=== PATIENT | male | born 1955 | race Caucasian/White ===

== ENCOUNTER 2017-10-13 09:02 | Inpatient (IN) ==
[2017-10-13] MEDS ORDERED: Sodium Chlor 0.9% Inj 50 ML ONE (23:57)
[2017-10-14] MEDS ORDERED: Potassium Phosphate Inj 30 MMOL in Sodium Chlor 0.9% Inj 250 ML IV.SIG PRN ×2
[2017-10-14] MEDS ORDERED: Potassium Phosphate 500 MG Soluble Tablet PO PRN
[2017-10-14] MEDS ORDERED: DO NOT ADM ANY ANTICOAGULANT DRUGS OTHER PRN
[2017-10-14] MEDS ORDERED: Magnesium Sulfate Inj 2 GM in Sodium Chlor 0.9% Inj 96 ML IV.SIG PRN (00:01)
[2017-10-14] MEDS ORDERED: Dextrose 50% in Water 50 ML Vial IV.PUSH PRN (00:01)
[2017-10-14] MEDS ORDERED: Magnesium Sulfate Inj 4 GM in Sodium Chlor 0.9% Inj 92 ML IV.SIG PRN (00:01)
[2017-10-14] MEDS ORDERED: Potassium Chloride 25 MEQ Effervescent Tablet PO PRN (00:01)
[2017-10-14] MEDS ORDERED: Vancomycin Consult Pharmacy 1 EACH OTHER SCH (00:01)
[2017-10-14] MEDS ORDERED: Sodium Phosphate Inj 30 MMOL in Sodium Chlor 0.9% Inj 250 ML IV.SIG PRN (00:50)
[2017-10-14] MEDS: Dexmedetomidine Inj 200 MCG/50 ML INFUS..BTL IV.SIG PRN ×2 (01:45→03:50)
[2017-10-14] MEDS: Dexmedetomidine Inj 200 MCG/2 ML Vial ONE ×4 (01:55→03:24)
[2017-10-14] MEDS: Sodium Chlor 0.9% Inj 50 ML ONE ×2 (01:56→03:23)
[2017-10-14] MEDS: Dexmedetomidine Inj 1,000 MCG in Sodium Chlor 0.9% Inj 240 ML IV.SIG PRN ×3 (05:04→23:36)
[2017-10-14] MEDS: Insulin NovoLIN Regular Correctional Sugar Inj SQ SCH ×5 (05:37→23:53)
[2017-10-14 05:59] LABS: Hematocrit 35.4 % (39.0-51.0); Hemoglobin 12.2 gm/dL (13.0-17.0); Mean Corpuscular HGB Conc 34.5 % (32.0-36.0); Mean Corpuscular Hemoglobin 35.1 pg (27.0-34.0); Mean Corpuscular Volume 101.7 fL (80.0-100.0); Mean Platelet Volume 7.8 fL (7.0-11.0); Platelet Count 101 th/mm3 (150-450); Red Blood Count 3.48 mil/mm3 (4.50-5.90); Red Cell Distribution Width 13.1 % (11.6-17.2); White Blood Count 6.3 th/mm3 (4.0-11.0)
[2017-10-14 06:08] LABS: Activated Partial Thrombo Time 28.6 sec (24.3-30.1); INR 1.1 Ratio; Prothrombin Time 10.9 sec (9.8-11.6)
[2017-10-14 06:27] LABS: % Iron Saturation 13.4 % (20-50)
[2017-10-14 06:34] LABS: Alanine Aminotransferase 35 U/L (12-78); Albumin 2.7 g/dL (3.4-5.0); Alkaline Phosphatase 76 U/L (45-117); Anion Gap 14 meq/L (5-15); Aspartate Aminotransferase 52 U/L (15-37); Blood Urea Nitrogen 6 mg/dL (7-18); Calcium 6.3 mg/dL (8.5-10.1); Carbon Dioxide 24.4 meq/L (21.0-32.0); Chloride 97 meq/L (98-107); Creatine Kinase 274 U/L (39-308); Glomerular Filtration Rate Greater Than 89 mL/min (>89); Glucose,Random 112 mg/dL (74-106); Magnesium 1.4 mg/dL (1.5-2.5); Phosphorus 2.3 mg/dL (2.5-4.9); Sodium 135 meq/L (136-145); Total Protein 6.7 g/dL (6.4-8.2)
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
[2017-10-14] MEDS: Magnesium Oxide 400 MG Tablet PO PRN ×2 (09:51→10:01)
[2017-10-14] MEDS: Famotidine PF Inj 20 MG/2 ML Vial IV.PUSH SCH ×2 (09:52→21:06)
[2017-10-14] MEDS: Thiamine Inj 100 MG in Sodium Chlor 0.9% Inj 100 ML IV.SIG SCH ×2 (10:00→11:19)
[2017-10-14] MEDS ORDERED: Calcium Gluconate Inj 2 GM in Sodium Chlor 0.9% Inj 100 ML IV.SIG ONE (10:00)
[2017-10-14] MEDS: Vancomycin Inj 1,500 MG in Sodium Chlor 0.9% Inj 500 ML IV.SIG SCH ×2 (10:00→21:07)
[2017-10-14] MEDS: Potassium Phosphate 500 MG Soluble Tablet PO PRN (10:01)
[2017-10-14] MEDS ORDERED: Haloperidol Inj 5 MG/ML Ampul IV.PUSH PRN (16:12)
[2017-10-14 17:56] LABS: Calcium 7.4 mg/dL (8.5-10.1); Magnesium 1.6 mg/dL (1.5-2.5); Total Protein 6.8 g/dL (6.4-8.2)
[2017-10-14 18:03] LABS: Potassium 2.9 meq/L (3.5-5.1)
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
--- NOTE | 2017-10-15 03:19 | XR ---
EXAM DATE: 10/15/2017 3:16 AM EDT AGE/SEX: 62 years / Male INDICATIONS: Short of breath. CLINICAL DATA: This is the patient's subsequent encounter. Patient reports that signs and symptoms h ave been present for 4 - 6 days and indicates a pain score of 0/10. MEDICAL/SURGICAL HISTORY: Non-responsive. Non-responsive. COMPARISON: [facility] – [place] CHEST SINGLE AP, 10/13/2017. . FINDINGS: A single AP view of the chest demonstrates the lungs to be symmetrically aerated without evidence of mass, infiltrate or effusion. The cardiomediastinal contours are unremarkable. Osseous structures a re intact. test administrator projects over and partially obscures the left costophrenic angle. CONCLUSION: The lungs are clear. Electronically signed by: Seth Christian MD 10/15/2017 3:18 AM EDT
[2017-10-15 04:42] LABS: Baso % (Auto) 0.6 % (0.0-2.0); Eos % (Auto) 0.7 % (0.0-4.0); Hematocrit 35.8 % (39.0-51.0); Hemoglobin 12.4 gm/dL (13.0-17.0); Lymph # (Auto) 1.8 th/mm3 (1.0-4.8); Mean Corpuscular HGB Conc 34.5 % (32.0-36.0); Mean Corpuscular Hemoglobin 35.3 pg (27.0-34.0); Mean Corpuscular Volume 102.4 fL (80.0-100.0); Mean Platelet Volume 8.3 fL (7.0-11.0); Mono # (Auto) 0.5 th/mm3 (0.0-0.9); Mono % (Auto) 7.1 % (0.0-8.0); Neut # (Auto) 4.5 th/mm3 (1.8-7.7); Neut % (Auto) 65.6 % (16.0-70.0); Platelet Count 109 th/mm3 (150-450); Red Cell Distribution Width 12.8 % (11.6-17.2); White Blood Count 6.9 th/mm3 (4.0-11.0)
[2017-10-15 05:35] LABS: Alanine Aminotransferase 37 U/L (12-78); Albumin 2.5 g/dL (3.4-5.0); Alkaline Phosphatase 78 U/L (45-117); Anion Gap 16 meq/L (5-15); Aspartate Aminotransferase 62 U/L (15-37); Blood Urea Nitrogen 6 mg/dL (7-18); Calcium 6.9 mg/dL (8.5-10.1); Carbon Dioxide 20.8 meq/L (21.0-32.0); Chloride 98 meq/L (98-107); Glomerular Filtration Rate Greater Than 89 mL/min (>89); Glucose,Random 102 mg/dL (74-106); Magnesium 1.5 mg/dL (1.5-2.5); Phosphorus 2.2 mg/dL (2.5-4.9); Sodium 135 meq/L (136-145); Total Protein 6.4 g/dL (6.4-8.2)
[2017-10-15 05:39] LABS: Potassium 2.9 meq/L (3.5-5.1)
[2017-10-15] MEDS: Insulin NovoLIN Regular Correctional Sugar Inj SQ SCH ×3 (06:33→18:00)
[2017-10-15] MEDS ORDERED: Pharmacy Ordered Lab Info OTHER ONE (08:45)
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
[2017-10-15] MEDS ORDERED: Calcium Gluconate Inj 1 GM in Sodium Chlor 0.9% Inj 100 ML IV.SIG ONE (10:00)
[2017-10-15] MEDS: Famotidine PF Inj 20 MG/2 ML Vial IV.PUSH SCH ×2 (10:19→21:04)
[2017-10-15] MEDS: Thiamine Inj 100 MG in Sodium Chlor 0.9% Inj 100 ML IV.SIG SCH (10:19)
[2017-10-15] MEDS: Potassium Phosphate 500 MG Soluble Tablet PO PRN (11:44)
[2017-10-15] MEDS: Vancomycin Inj 1,750 MG in Sodium Chlor 0.9% Inj 500 ML IV.SIG SCH (13:37)
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
[2017-10-15 18:44] LABS: Baso % (Auto) 0.6 % (0.0-2.0); Eos % (Auto) 0.5 % (0.0-4.0); Hemoglobin 12.2 gm/dL (13.0-17.0); Lymph # (Auto) 1.7 th/mm3 (1.0-4.8); Lymph % (Auto) 22.5 % (9.0-44.0); Mean Corpuscular HGB Conc 34.9 % (32.0-36.0); Mean Corpuscular Hemoglobin 35.3 pg (27.0-34.0); Mean Platelet Volume 8.2 fL (7.0-11.0); Mono # (Auto) 0.6 th/mm3 (0.0-0.9); Mono % (Auto) 8.6 % (0.0-8.0); Neut # (Auto) 5.1 th/mm3 (1.8-7.7); Neut % (Auto) 67.8 % (16.0-70.0); Platelet Count 129 th/mm3 (150-450); Red Blood Count 3.47 mil/mm3 (4.50-5.90); Red Cell Distribution Width 12.8 % (11.6-17.2); White Blood Count 7.5 th/mm3 (4.0-11.0)
[2017-10-15 19:08] LABS: Activated Partial Thrombo Time 27.7 sec (24.3-30.1); Prothrombin Time 10.5 sec (9.8-11.6)
[2017-10-15 19:13] LABS: Alanine Aminotransferase 33 U/L (12-78); Albumin 2.4 g/dL (3.4-5.0); Alkaline Phosphatase 77 U/L (45-117); Anion Gap 17 meq/L (5-15); Aspartate Aminotransferase 58 U/L (15-37); Blood Urea Nitrogen 6 mg/dL (7-18); Calcium 7.4 mg/dL (8.5-10.1); Carbon Dioxide 18.1 meq/L (21.0-32.0); Chloride 100 meq/L (98-107); Glomerular Filtration Rate Greater Than 89 mL/min (>89); Glucose,Random 76 mg/dL (74-106); Magnesium 1.4 mg/dL (1.5-2.5); Sodium 135 meq/L (136-145); Total Protein 6.6 g/dL (6.4-8.2)
[2017-10-15 19:16] LABS: Potassium 2.8 meq/L (3.5-5.1)
[2017-10-16] MEDS: Insulin NovoLIN Regular Correctional Sugar Inj SQ SCH ×4 (00:44→18:27)
[2017-10-16] MEDS: Dexmedetomidine Inj 1,000 MCG in Sodium Chlor 0.9% Inj 240 ML IV.SIG PRN (00:47)
[2017-10-16] MEDS: Vancomycin Inj 1,750 MG in Sodium Chlor 0.9% Inj 500 ML IV.SIG SCH (00:57)
[2017-10-16 04:34] LABS: Baso # (Auto) 0.1 th/mm3 (0.0-0.2); Baso % (Auto) 0.8 % (0.0-2.0); Eos # (Auto) 0.1 th/mm3 (0.0-0.4); Eos % (Auto) 1.3 % (0.0-4.0); Hemoglobin 12.5 gm/dL (13.0-17.0); Lymph # (Auto) 1.7 th/mm3 (1.0-4.8); Lymph % (Auto) 25.3 % (9.0-44.0); Mean Corpuscular HGB Conc 34.7 % (32.0-36.0); Mean Corpuscular Hemoglobin 35.6 pg (27.0-34.0); Mean Corpuscular Volume 102.6 fL (80.0-100.0); Mean Platelet Volume 7.8 fL (7.0-11.0); Mono # (Auto) 0.7 th/mm3 (0.0-0.9); Mono % (Auto) 10.1 % (0.0-8.0); Neut # (Auto) 4.1 th/mm3 (1.8-7.7); Neut % (Auto) 62.5 % (16.0-70.0); Platelet Count 139 th/mm3 (150-450); Red Blood Count 3.51 mil/mm3 (4.50-5.90); Red Cell Distribution Width 12.9 % (11.6-17.2); White Blood Count 6.6 th/mm3 (4.0-11.0)
[2017-10-16 04:58] LABS: Alanine Aminotransferase 33 U/L (12-78); Albumin 2.5 g/dL (3.4-5.0); Alkaline Phosphatase 77 U/L (45-117); Anion Gap 16 meq/L (5-15); Aspartate Aminotransferase 49 U/L (15-37); Blood Urea Nitrogen 4 mg/dL (7-18); Calcium 7.1 mg/dL (8.5-10.1); Carbon Dioxide 19.6 meq/L (21.0-32.0); Chloride 101 meq/L (98-107); Glomerular Filtration Rate Greater Than 89 mL/min (>89); Glucose,Random 88 mg/dL (74-106); Magnesium 1.5 mg/dL (1.5-2.5); Phosphorus 2.5 mg/dL (2.5-4.9); Sodium 137 meq/L (136-145); Total Protein 6.5 g/dL (6.4-8.2)
[2017-10-16 05:24] LABS: Potassium 2.7 meq/L (3.5-5.1)
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
[2017-10-16] MEDS: Potassium Chlor 20 mEq Premix 20 MEQ/100 ML PIGGYBACK IV.SIG PRN ×2 (08:58→11:06)
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
[2017-10-16] MEDS: Famotidine PF Inj 20 MG/2 ML Vial IV.PUSH SCH ×2 (10:46→22:00)
[2017-10-16 15:16] LABS: Baso # (Auto) 0.1 th/mm3 (0.0-0.2); Baso % (Auto) 0.8 % (0.0-2.0); Eos # (Auto) 0.1 th/mm3 (0.0-0.4); Eos % (Auto) 0.7 % (0.0-4.0); Hematocrit 37.7 % (39.0-51.0); Hemoglobin 12.8 gm/dL (13.0-17.0); Lymph # (Auto) 2.2 th/mm3 (1.0-4.8); Lymph % (Auto) 28.8 % (9.0-44.0); Mean Corpuscular HGB Conc 34.1 % (32.0-36.0); Mean Corpuscular Hemoglobin 35.8 pg (27.0-34.0); Mean Corpuscular Volume 105.1 fL (80.0-100.0); Mean Platelet Volume 8.8 fL (7.0-11.0); Mono # (Auto) 0.9 th/mm3 (0.0-0.9); Mono % (Auto) 11.7 % (0.0-8.0); Neut # (Auto) 4.4 th/mm3 (1.8-7.7); Platelet Count 177 th/mm3 (150-450); Red Blood Count 3.58 mil/mm3 (4.50-5.90); Red Cell Distribution Width 13.1 % (11.6-17.2); White Blood Count 7.7 th/mm3 (4.0-11.0)
[2017-10-16 15:26] LABS: Activated Partial Thrombo Time 25.7 sec (24.3-30.1); Prothrombin Time 10.2 sec (9.8-11.6)
[2017-10-16 15:44] LABS: Alanine Aminotransferase 38 U/L (12-78); Albumin 2.7 g/dL (3.4-5.0); Anion Gap 18 meq/L (5-15); Aspartate Aminotransferase 54 U/L (15-37); Blood Urea Nitrogen 6 mg/dL (7-18); Calcium 7.6 mg/dL (8.5-10.1); Carbon Dioxide 17.2 meq/L (21.0-32.0); Chloride 102 meq/L (98-107); Glomerular Filtration Rate Greater Than 89 mL/min (>89); Glucose,Random 80 mg/dL (74-106); Magnesium 1.6 mg/dL (1.5-2.5); Phosphorus 2.1 mg/dL (2.5-4.9); Potassium 3.2 meq/L (3.5-5.1); Sodium 137 meq/L (136-145)
[2017-10-16 15:46] LABS: Alkaline Phosphatase 87 U/L (45-117); Total Protein 7.2 g/dL (6.4-8.2)
[2017-10-17] MEDS: Potassium Chlor 20 mEq Premix 20 MEQ/100 ML PIGGYBACK IV.SIG PRN (00:24)
[2017-10-17] MEDS ORDERED: Pharmacy Ordered Lab Info OTHER ONE (00:45)
[2017-10-17 05:17] LABS: Baso # (Auto) 0.1 th/mm3 (0.0-0.2); Baso % (Auto) 0.9 % (0.0-2.0); Eos % (Auto) 0.5 % (0.0-4.0); Hematocrit 36.4 % (39.0-51.0); Hemoglobin 12.2 gm/dL (13.0-17.0); Lymph # (Auto) 1.8 th/mm3 (1.0-4.8); Lymph % (Auto) 24.4 % (9.0-44.0); Mean Corpuscular HGB Conc 33.7 % (32.0-36.0); Mean Corpuscular Hemoglobin 35.3 pg (27.0-34.0); Mean Corpuscular Volume 104.8 fL (80.0-100.0); Mean Platelet Volume 7.6 fL (7.0-11.0); Mono # (Auto) 1.1 th/mm3 (0.0-0.9); Mono % (Auto) 14.7 % (0.0-8.0); Neut # (Auto) 4.3 th/mm3 (1.8-7.7); Neut % (Auto) 59.5 % (16.0-70.0); Platelet Count 205 th/mm3 (150-450); Red Blood Count 3.47 mil/mm3 (4.50-5.90); Red Cell Distribution Width 13.1 % (11.6-17.2); White Blood Count 7.3 th/mm3 (4.0-11.0)
[2017-10-17 05:35] LABS: Albumin 2.9 g/dL (3.4-5.0); Anion Gap 18 meq/L (5-15); Aspartate Aminotransferase 47 U/L (15-37); Blood Urea Nitrogen 5 mg/dL (7-18); Calcium 7.9 mg/dL (8.5-10.1); Carbon Dioxide 16.9 meq/L (21.0-32.0); Chloride 103 meq/L (98-107); Glomerular Filtration Rate Greater Than 89 mL/min (>89); Glucose,Random 62 mg/dL (74-106); Magnesium 1.8 mg/dL (1.5-2.5); Potassium 3.5 meq/L (3.5-5.1); Sodium 138 meq/L (136-145)
[2017-10-17 05:36] LABS: Alanine Aminotransferase 36 U/L (12-78); Phosphorus 1.5 mg/dL (2.5-4.9)
[2017-10-17 05:38] LABS: Alkaline Phosphatase 84 U/L (45-117); Total Protein 7.4 g/dL (6.4-8.2)
[2017-10-17] MEDS: Dexmedetomidine Inj 1,000 MCG in Sodium Chlor 0.9% Inj 240 ML IV.SIG PRN (05:51)
[2017-10-17] MEDS: Famotidine PF Inj 20 MG/2 ML Vial IV.PUSH SCH ×2 (09:35→21:09)
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
[2017-10-17] MEDS: Insulin NovoLIN Regular Correctional Sugar Inj SQ SCH ×2 (14:26→18:15)
[2017-10-17 14:59] LABS: Baso # (Auto) 0.1 th/mm3 (0.0-0.2); Baso % (Auto) 0.8 % (0.0-2.0); Eos # (Auto) 0.1 th/mm3 (0.0-0.4); Eos % (Auto) 0.7 % (0.0-4.0); Hemoglobin 12.4 gm/dL (13.0-17.0); Mean Corpuscular HGB Conc 34.3 % (32.0-36.0); Mean Corpuscular Hemoglobin 35.8 pg (27.0-34.0); Mean Corpuscular Volume 104.5 fL (80.0-100.0); Mean Platelet Volume 7.5 fL (7.0-11.0); Mono # (Auto) 1.3 th/mm3 (0.0-0.9); Mono % (Auto) 16.5 % (0.0-8.0); Neut # (Auto) 4.3 th/mm3 (1.8-7.7); Platelet Count 217 th/mm3 (150-450); Red Blood Count 3.45 mil/mm3 (4.50-5.90); Red Cell Distribution Width 12.9 % (11.6-17.2); White Blood Count 7.7 th/mm3 (4.0-11.0)
[2017-10-17 15:25] LABS: Anion Gap 19 meq/L (5-15); Blood Urea Nitrogen 3 mg/dL (7-18); Calcium 7.8 mg/dL (8.5-10.1); Carbon Dioxide 15.1 meq/L (21.0-32.0); Chloride 103 meq/L (98-107); Glomerular Filtration Rate Greater Than 89 mL/min (>89); Glucose,Random 72 mg/dL (74-106); Magnesium 1.7 mg/dL (1.5-2.5); Phosphorus 1.6 mg/dL (2.5-4.9); Potassium 3.4 meq/L (3.5-5.1); Sodium 137 meq/L (136-145)
[2017-10-17] MEDS ORDERED: Adenosine Inj 6 MG/2 ML Syringe IV.PUSH ONE ×2 (16:35→16:37)
[2017-10-17] MEDS: levoFLOXacin 750 MG Tablet PO SCH (18:14)
[2017-10-17] MEDS: dilTIAZem 30 MG Tablet PO SCH ×2 (18:47→21:08)
[2017-10-17] MEDS ORDERED: Dexmedetomidine Inj 1,000 MCG in Sodium Chlor 0.9% Inj 240 ML IV.SIG PRN (19:54)
[2017-10-17] MEDS: metroNIDAZOLE 500 MG Tablet PO SCH (21:08)
[2017-10-18] MEDS: Insulin NovoLIN Regular Correctional Sugar Inj SQ SCH ×4 (00:03→17:37)
[2017-10-18 03:47] LABS: Hematocrit 36.3 % (39.0-51.0); Hemoglobin 12.4 gm/dL (13.0-17.0); Mean Corpuscular HGB Conc 34.2 % (32.0-36.0); Mean Corpuscular Hemoglobin 35.8 pg (27.0-34.0); Mean Corpuscular Volume 104.5 fL (80.0-100.0); Platelet Count 242 th/mm3 (150-450); Red Blood Count 3.48 mil/mm3 (4.50-5.90); Red Cell Distribution Width 12.9 % (11.6-17.2); White Blood Count 7.4 th/mm3 (4.0-11.0)
[2017-10-18 04:25] LABS: Alanine Aminotransferase 33 U/L (12-78); Albumin 2.9 g/dL (3.4-5.0); Anion Gap 19 meq/L (5-15); Aspartate Aminotransferase 34 U/L (15-37); Blood Urea Nitrogen 5 mg/dL (7-18); Carbon Dioxide 14.8 meq/L (21.0-32.0); Chloride 105 meq/L (98-107); Glomerular Filtration Rate Greater Than 89 mL/min (>89); Glucose,Random 73 mg/dL (74-106); Magnesium 1.7 mg/dL (1.5-2.5); Potassium 3.4 meq/L (3.5-5.1); Sodium 139 meq/L (136-145)
[2017-10-18 04:28] LABS: Alkaline Phosphatase 84 U/L (45-117); Total Protein 7.6 g/dL (6.4-8.2)
[2017-10-18] MEDS: metroNIDAZOLE 500 MG Tablet PO SCH ×3 (05:44→23:42)
[2017-10-18] MEDS: dilTIAZem 30 MG Tablet PO SCH ×4 (08:04→20:17)
[2017-10-18] MEDS: Famotidine PF Inj 20 MG/2 ML Vial IV.PUSH SCH ×2 (08:04→20:18)
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
[2017-10-18] MEDS: Folic Acid 1 MG Tablet PO SCH (12:34)
[2017-10-18] MEDS: levoFLOXacin 750 MG Tablet PO SCH (15:13)
--- NOTE | 2017-10-18 17:53 | ECG ---
Date Performed: 10/17/2017 Time Performed: 16:58:01 PTAGE: 62 years EKG: SINUS TACHYCARDIA INFERIOR MYOCARDIAL INFARCTION , PROBABLY OLD ABNORMAL ECG PREVIOUS TRACING : 10/13/2017 09.20 Since the previous tracing, no significant change noted DOCTOR: Mildred rCespo Interpretating Date/Time 10/18/2017 17:51:09
--- NOTE | 2017-10-18 17:59 | ECHRPT ---
Indication: a fib / flutter CONCLUSIONS The transthoracic study is normal by two-dimensional, color flow imaging and Doppler interrogation. BP: / HR: Rhythm: MEASUREMENTS (Male / Female) Normal Values Technical Quality:Technically difficult study 2D ECHO LV Diastolic Diameter PLAX 4.4 cm 4.2 - 5.9 / 3.9 - 5.3 cm LV Systolic Diameter PLAX 3.0 cm IVS Diastolic Thickness 1.1 cm 0.6 - 1.0 / 0.6 - 0.9 cm LVPW Diastolic Thickness 1.0 cm 0.6 - 1.0 / 0.6 - 0.9 cm LV Relative Wall Thickness 0.5 RV Internal Dim ED PLAX 2.5 cm M-MODE Aortic Root Diameter MM 3.0 cm LA Systolic Diameter MM 4.0 cm LA Ao Ratio MM 1.3 AV Cusp Separation MM 1.7 cm FINDINGS LEFT VENTRICLE Normal left ventricular size and wall thickness. The left ventricular systolic function is normal wi th an estimated ejection fraction in the range of 60-65%. Left ventricular diastolic function parameters a re normal. RIGHT VENTRICLE The right ventricular size is normal. LEFT ATRIUM The left atrial size is normal. RIGHT ATRIUM The right atrial size is normal. ATRIAL SEPTUM Normal atrial septal thickness without atrial level shunting by limited color doppler interrogation. AORTA The aortic root and proximal ascending aorta are not well visualized. MITRAL VALVE Structurally normal mitral valve. No mitral valve stenosis or regurgitation. AORTIC VALVE Trileaflet aortic valve. No aortic valve stenosis or regurgitation. TRICUSPID VALVE Structurally normal tricuspid valve. No tricuspid valve stenosis or regurgitation. PULMONARY VALVE No pulmonary valve regurgitation or stenosis. VESSELS The inferior vena cava is normal in size. PERICARDIUM There is no pericardial effusion. Raman Quevedo MD (Electronically Signed) Final Date:18 October 2017 17:57
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
[2017-10-19] MEDS: Insulin NovoLIN Regular Correctional Sugar Inj SQ SCH ×4 (06:00→17:45)
[2017-10-19] MEDS: metroNIDAZOLE 500 MG Tablet PO SCH ×3 (06:26→22:14)
[2017-10-19 06:51] LABS: INR 1.1 Ratio; Prothrombin Time 11.2 sec (9.8-11.6)
[2017-10-19 06:58] LABS: Baso # (Auto) 0.1 th/mm3 (0.0-0.2); Baso % (Auto) 1.1 % (0.0-2.0); Eos # (Auto) 0.1 th/mm3 (0.0-0.4); Eos % (Auto) 0.9 % (0.0-4.0); Hemoglobin 13.2 gm/dL (13.0-17.0); Lymph % (Auto) 28.1 % (9.0-44.0); Mean Corpuscular HGB Conc 34.7 % (32.0-36.0); Mean Corpuscular Hemoglobin 35.9 pg (27.0-34.0); Mean Corpuscular Volume 103.7 fL (80.0-100.0); Mean Platelet Volume 7.2 fL (7.0-11.0); Mono # (Auto) 1.5 th/mm3 (0.0-0.9); Mono % (Auto) 21.6 % (0.0-8.0); Neut # (Auto) 3.4 th/mm3 (1.8-7.7); Neut % (Auto) 48.3 % (16.0-70.0); Platelet Count 299 th/mm3 (150-450); Red Blood Count 3.67 mil/mm3 (4.50-5.90); Red Cell Distribution Width 13.1 % (11.6-17.2)
[2017-10-19 07:15] LABS: Alanine Aminotransferase 29 U/L (12-78); Albumin 3.2 g/dL (3.4-5.0); Anion Gap 19 meq/L (5-15); Aspartate Aminotransferase 24 U/L (15-37); Blood Urea Nitrogen 7 mg/dL (7-18); Calcium 8.8 mg/dL (8.5-10.1); Carbon Dioxide 15.8 meq/L (21.0-32.0); Chloride 108 meq/L (98-107); Glomerular Filtration Rate Greater Than 89 mL/min (>89); Glucose,Random 91 mg/dL (74-106); Magnesium 1.7 mg/dL (1.5-2.5); Phosphorus 2.6 mg/dL (2.5-4.9); Potassium 3.1 meq/L (3.5-5.1); Sodium 143 meq/L (136-145)
[2017-10-19 07:25] LABS: Alkaline Phosphatase 84 U/L (45-117); Total Protein 7.9 g/dL (6.4-8.2)
[2017-10-19] MEDS: Folic Acid 1 MG Tablet PO SCH (08:00)
[2017-10-19] MEDS: dilTIAZem 30 MG Tablet PO SCH ×4 (08:00→20:53)
[2017-10-19] MEDS: Famotidine PF Inj 20 MG/2 ML Vial IV.PUSH SCH ×2 (08:01→20:53)
[2017-10-19] MEDS ORDERED: Sennosides Liq 8.8 MG/5 ML UDC PO ONE (09:53)
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
[2017-10-19 12:37] LABS: Hemoglobin A1c 4.6 % (4.3-6.0)
[2017-10-19] MEDS: Polyethylene Glycol 3350 17 GM Packet PO SCH (13:31)
[2017-10-19] MEDS: levoFLOXacin 750 MG Tablet PO SCH (17:44)
[2017-10-20] MEDS: metroNIDAZOLE 500 MG Tablet PO SCH (05:55)
[2017-10-20 06:08] LABS: Hematocrit 38.8 % (39.0-51.0); Hemoglobin 13.3 gm/dL (13.0-17.0); Mean Corpuscular HGB Conc 34.3 % (32.0-36.0); Mean Corpuscular Hemoglobin 34.9 pg (27.0-34.0); Mean Corpuscular Volume 101.9 fL (80.0-100.0); Platelet Count 304 th/mm3 (150-450); Red Blood Count 3.81 mil/mm3 (4.50-5.90); Red Cell Distribution Width 12.9 % (11.6-17.2); White Blood Count 5.5 th/mm3 (4.0-11.0)
[2017-10-20] MEDS: Insulin NovoLIN Regular Correctional Sugar Inj SQ SCH ×4 (06:27→18:00)
[2017-10-20 06:41] LABS: Albumin 2.9 g/dL (3.4-5.0); Anion Gap 13 meq/L (5-15); Aspartate Aminotransferase 22 U/L (15-37); Blood Urea Nitrogen 11 mg/dL (7-18); Calcium 9.2 mg/dL (8.5-10.1); Carbon Dioxide 19.7 meq/L (21.0-32.0); Chloride 112 meq/L (98-107); Glomerular Filtration Rate Greater Than 89 mL/min (>89); Glucose,Random 123 mg/dL (74-106); Sodium 145 meq/L (136-145)
[2017-10-20 06:42] LABS: Alanine Aminotransferase 24 U/L (12-78)
[2017-10-20 06:44] LABS: Alkaline Phosphatase 80 U/L (45-117); Total Protein 7.6 g/dL (6.4-8.2)
[2017-10-20] MEDS: Potassium Chlor 20 mEq Premix 20 MEQ/100 ML PIGGYBACK IV.SIG PRN ×2 (07:15→09:37)
[2017-10-20] MEDS: Famotidine PF Inj 20 MG/2 ML Vial IV.PUSH SCH ×2 (08:35→21:46)
[2017-10-20] MEDS: dilTIAZem 30 MG Tablet PO SCH ×4 (08:35→21:46)
[2017-10-20] MEDS: Folic Acid 1 MG Tablet PO SCH (08:35)
[2017-10-20] MEDS: Polyethylene Glycol 3350 17 GM Packet PO SCH (08:35)
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
[2017-10-20] MEDS: levoFLOXacin 750 MG Tablet PO SCH (14:45)
[2017-10-21] MEDS ORDERED: Acetaminophen 325 MG Tablet PO ONE (01:15)
[2017-10-21] MEDS: Insulin NovoLIN Regular Correctional Sugar Inj SQ SCH ×4 (03:50→17:10)
[2017-10-21 09:36] LABS: Baso # (Auto) 0.2 th/mm3 (0.0-0.2); Baso % (Auto) 2.9 % (0.0-2.0); Eos # (Auto) 0.1 th/mm3 (0.0-0.4); Eos % (Auto) 1.7 % (0.0-4.0); Hematocrit 36.5 % (39.0-51.0); Hemoglobin 12.6 gm/dL (13.0-17.0); Lymph # (Auto) 1.9 th/mm3 (1.0-4.8); Lymph % (Auto) 35.1 % (9.0-44.0); Mean Corpuscular HGB Conc 34.6 % (32.0-36.0); Mean Corpuscular Hemoglobin 35.7 pg (27.0-34.0); Mean Platelet Volume 7.5 fL (7.0-11.0); Mono # (Auto) 1.3 th/mm3 (0.0-0.9); Mono % (Auto) 24.2 % (0.0-8.0); Neut % (Auto) 36.1 % (16.0-70.0); Platelet Count 336 th/mm3 (150-450); Red Blood Count 3.54 mil/mm3 (4.50-5.90); Red Cell Distribution Width 13.1 % (11.6-17.2); White Blood Count 5.5 th/mm3 (4.0-11.0)
[2017-10-21 09:55] LABS: Albumin 2.7 g/dL (3.4-5.0); Anion Gap 11 meq/L (5-15); Aspartate Aminotransferase 28 U/L (15-37); Blood Urea Nitrogen 13 mg/dL (7-18); Calcium 9.2 mg/dL (8.5-10.1); Carbon Dioxide 21.1 meq/L (21.0-32.0); Chloride 113 meq/L (98-107); Glomerular Filtration Rate Greater Than 89 mL/min (>89); Glucose,Random 102 mg/dL (74-106); Potassium 3.5 meq/L (3.5-5.1); Sodium 145 meq/L (136-145)
[2017-10-21 09:56] LABS: Alanine Aminotransferase 27 U/L (12-78)
[2017-10-21 09:57] LABS: Alkaline Phosphatase 74 U/L (45-117); Total Protein 7.4 g/dL (6.4-8.2)
[2017-10-21] MEDS: Folic Acid 1 MG Tablet PO SCH (10:17)
[2017-10-21] MEDS: dilTIAZem 30 MG Tablet PO SCH ×4 (10:17→22:52)
[2017-10-21] MEDS: Famotidine PF Inj 20 MG/2 ML Vial IV.PUSH SCH ×2 (10:18→22:52)
[2017-10-21] MEDS: Polyethylene Glycol 3350 17 GM Packet PO SCH (10:23)
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
[2017-10-22] MEDS: Insulin NovoLIN Regular Correctional Sugar Inj SQ SCH ×4 (05:50→22:01)
[2017-10-22] MEDS: Famotidine PF Inj 20 MG/2 ML Vial IV.PUSH SCH ×2 (08:14→22:03)
[2017-10-22] MEDS: Polyethylene Glycol 3350 17 GM Packet PO SCH (08:15)
[2017-10-22] MEDS: Folic Acid 1 MG Tablet PO SCH (08:15)
[2017-10-22] MEDS: dilTIAZem 30 MG Tablet PO SCH ×4 (08:15→22:03)
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
[2017-10-22] MEDS ORDERED: Adenosine Inj 6 MG/2 ML Syringe IV.PUSH ONE (15:10)
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
[2017-10-23] MEDS: Insulin NovoLIN Regular Correctional Sugar Inj SQ SCH ×4 (05:08→17:18)
[2017-10-23] MEDS: Famotidine PF Inj 20 MG/2 ML Vial IV.PUSH SCH (07:59)
[2017-10-23] MEDS: Polyethylene Glycol 3350 17 GM Packet PO SCH (07:59)
[2017-10-23] MEDS: dilTIAZem 30 MG Tablet PO SCH ×4 (08:00→22:53)
[2017-10-23] MEDS: Folic Acid 1 MG Tablet PO SCH (08:00)
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
[2017-10-23] MEDS: Famotidine 20 MG Tablet PO SCH (22:52)
[2017-10-24] MEDS: Insulin NovoLIN Regular Correctional Sugar Inj SQ SCH ×4 (07:04→18:23)
[2017-10-24] MEDS: Polyethylene Glycol 3350 17 GM Packet PO SCH (08:56)
[2017-10-24] MEDS: dilTIAZem 30 MG Tablet PO SCH ×3 (09:06→22:51)
[2017-10-24] MEDS: Famotidine 20 MG Tablet PO SCH ×2 (09:07→22:51)
[2017-10-24] MEDS: Folic Acid 1 MG Tablet PO SCH (09:08)
[2017-10-24] MEDS ORDERED: Chlorhexidine Gluconate 2% 1 Pack (2 Cloths) TOPICAL SCH (10:30)
[2017-10-24] MEDS ORDERED: Metoprolol Tartrate 25 MG Tablet PO SCH (10:30)
[2017-10-24] MEDS ORDERED: Sodium Chlor 0.9% Inj 500 ML IV.SIG SCH (11:00)
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
[2017-10-25] MEDS: Insulin NovoLIN Regular Correctional Sugar Inj SQ SCH ×5 (00:28→23:48)
[2017-10-25] MEDS: dilTIAZem 30 MG Tablet PO SCH ×5 (08:27→22:17)
[2017-10-25] MEDS: Polyethylene Glycol 3350 17 GM Packet PO SCH (08:27)
[2017-10-25] MEDS: Folic Acid 1 MG Tablet PO SCH (08:28)
[2017-10-25] MEDS: Famotidine 20 MG Tablet PO SCH ×2 (08:28→22:20)
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
[2017-10-26] MEDS: Insulin NovoLIN Regular Correctional Sugar Inj SQ SCH (06:28)
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
[2017-10-26] MEDS: Polyethylene Glycol 3350 17 GM Packet PO SCH (13:11)
[2017-10-26] MEDS: dilTIAZem 30 MG Tablet PO SCH ×4 (13:11→21:46)
[2017-10-26] MEDS: Folic Acid 1 MG Tablet PO SCH (13:11)
[2017-10-26] MEDS: Famotidine 20 MG Tablet PO SCH ×2 (13:11→21:46)
[2017-10-26] MEDS ORDERED: Morphine Sulfate Inj 2 MG/ML Vial IV.PUSH ONE (16:37)
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
[2017-10-26] MEDS ORDERED: Morphine Inj 4 MG/ML Vial IV.PUSH ONE (18:00)
[2017-10-27] MEDS: dilTIAZem 30 MG Tablet PO SCH ×4 (09:43→22:12)
[2017-10-27] MEDS: Folic Acid 1 MG Tablet PO SCH (09:43)
[2017-10-27] MEDS: Famotidine 20 MG Tablet PO SCH ×2 (09:43→22:12)
[2017-10-27] MEDS: Polyethylene Glycol 3350 17 GM Packet PO SCH (09:44)
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
[2017-10-28] MEDS: Folic Acid 1 MG Tablet PO SCH (08:55)
[2017-10-28] MEDS: dilTIAZem 30 MG Tablet PO SCH ×4 (08:56→22:11)
[2017-10-28] MEDS: Famotidine 20 MG Tablet PO SCH ×2 (08:56→22:11)
[2017-10-28] MEDS: Polyethylene Glycol 3350 17 GM Packet PO SCH (08:56)
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
[2017-10-29] MEDS: Folic Acid 1 MG Tablet PO SCH (10:43)
[2017-10-29] MEDS: Famotidine 20 MG Tablet PO SCH ×2 (10:43→20:54)
[2017-10-29] MEDS: dilTIAZem 30 MG Tablet PO SCH ×4 (10:43→20:54)
[2017-10-29 10:44] LABS: Baso # (Auto) 0.2 th/mm3 (0.0-0.2); Baso % (Auto) 2.3 % (0.0-2.0); Eos # (Auto) 0.1 th/mm3 (0.0-0.4); Eos % (Auto) 1.6 % (0.0-4.0); Lymph # (Auto) 3.1 th/mm3 (1.0-4.8); Lymph % (Auto) 40.8 % (9.0-44.0); Mean Corpuscular HGB Conc 34.3 % (32.0-36.0); Mean Platelet Volume 7.7 fL (7.0-11.0); Neut # (Auto) 3.2 th/mm3 (1.8-7.7); Neut % (Auto) 42.3 % (16.0-70.0); Platelet Count 382 th/mm3 (150-450); Red Blood Count 3.72 mil/mm3 (4.50-5.90); Red Cell Distribution Width 12.6 % (11.6-17.2); White Blood Count 7.5 th/mm3 (4.0-11.0)
[2017-10-29] MEDS: Polyethylene Glycol 3350 17 GM Packet PO SCH (10:44)
[2017-10-29 10:49] LABS: Prothrombin Time 10.5 sec (9.8-11.6)
[2017-10-29 11:12] LABS: Albumin 3.4 g/dL (3.4-5.0); Anion Gap 9 meq/L (5-15); Aspartate Aminotransferase 21 U/L (15-37); Blood Urea Nitrogen 8 mg/dL (7-18); Calcium 9.1 mg/dL (8.5-10.1); Carbon Dioxide 24.6 meq/L (21.0-32.0); Chloride 106 meq/L (98-107); Glomerular Filtration Rate Greater Than 89 mL/min (>89); Glucose,Random 84 mg/dL (74-106); Potassium 3.4 meq/L (3.5-5.1); Sodium 140 meq/L (136-145)
[2017-10-29 11:17] LABS: Alanine Aminotransferase 27 U/L (12-78); Alkaline Phosphatase 71 U/L (45-117)
[2017-10-29] MEDS ORDERED: Lidocaine PF 1% Inj 5 ML Syringe INFILTRATN ONE (12:00)
[2017-10-29] MEDS ORDERED: Glycopyrrolate Inj 1 MG/5 ML Syringe IV.PUSH ONE (12:00)
[2017-10-29] MEDS ORDERED: Phenylephrine/NS 1000 MCG/10ML Syringe IV.PUSH ONE (12:00)
[2017-10-29] MEDS ORDERED: Lidocaine 1%/Epinephrine 1:100,000 Inj 20 ML Vial ONE (16:03)
[2017-10-29] MEDS ORDERED: Lidocaine 1%/Epinephrine 1:100,000 Inj 30 ML Vial ONE (16:24)
[2017-10-29] MEDS ORDERED: *Meperidine Inj 25 MG/ML Vial PERIprocedural Use ONLY ONE (16:50)
[2017-10-29] MEDS ORDERED: fentaNYL Citrate Inj 100 MCG/2 ML Ampul ONE (16:57)
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
[2017-10-30] MEDS: dilTIAZem 30 MG Tablet PO SCH ×4 (10:11→21:38)
[2017-10-30] MEDS: Famotidine 20 MG Tablet PO SCH ×2 (10:11→21:38)
[2017-10-30] MEDS: Folic Acid 1 MG Tablet PO SCH (10:12)
[2017-10-30] MEDS: Polyethylene Glycol 3350 17 GM Packet PO SCH (10:13)
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
[2017-10-31] MEDS: Folic Acid 1 MG Tablet PO SCH (09:10)
[2017-10-31] MEDS: Famotidine 20 MG Tablet PO SCH ×2 (09:10→21:06)
[2017-10-31] MEDS: dilTIAZem 30 MG Tablet PO SCH ×4 (09:10→21:06)
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
[2017-10-31] MEDS: Polyethylene Glycol 3350 17 GM Packet PO SCH (12:12)
[2017-11-01] MEDS: Folic Acid 1 MG Tablet PO SCH (09:53)
[2017-11-01] MEDS: dilTIAZem 30 MG Tablet PO SCH ×4 (09:53→21:27)
[2017-11-01] MEDS: Famotidine 20 MG Tablet PO SCH ×2 (09:53→21:27)
[2017-11-01] MEDS: Polyethylene Glycol 3350 17 GM Packet PO SCH (09:53)
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
[2017-11-01] MEDS: Morphine Inj 4 MG/ML Vial IV.PUSH PRN (21:28)
[2017-11-02] MEDS: dilTIAZem 30 MG Tablet PO SCH ×4 (09:45→21:51)
[2017-11-02] MEDS: Folic Acid 1 MG Tablet PO SCH (09:45)
[2017-11-02] MEDS: Famotidine 20 MG Tablet PO SCH ×2 (09:45→21:51)
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
[2017-11-02] MEDS: Polyethylene Glycol 3350 17 GM Packet PO SCH (13:30)
[2017-11-02] MEDS: Morphine Inj 4 MG/ML Vial IV.PUSH PRN (14:54)
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
[2017-11-03] MEDS: Folic Acid 1 MG Tablet PO SCH (09:51)
[2017-11-03] MEDS: Famotidine 20 MG Tablet PO SCH ×2 (09:51→20:51)
[2017-11-03] MEDS: dilTIAZem 30 MG Tablet PO SCH ×4 (09:51→20:51)
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
[2017-11-03] MEDS: Polyethylene Glycol 3350 17 GM Packet PO SCH (09:55)
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
[2017-11-04] MEDS: Famotidine 20 MG Tablet PO SCH ×2 (09:14→21:10)
[2017-11-04] MEDS: Polyethylene Glycol 3350 17 GM Packet PO SCH (09:14)
[2017-11-04] MEDS: Folic Acid 1 MG Tablet PO SCH (09:14)
[2017-11-04] MEDS: dilTIAZem CD 120 MG Capsule PO SCH (09:16)
[2017-11-04] MEDS: Morphine Inj 4 MG/ML Vial IV.PUSH PRN (15:25)
[2017-11-05] MEDS: dilTIAZem CD 120 MG Capsule PO SCH (08:51)
[2017-11-05] MEDS: Folic Acid 1 MG Tablet PO SCH (08:51)
[2017-11-05] MEDS: Polyethylene Glycol 3350 17 GM Packet PO SCH (08:52)
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
[2017-11-05] MEDS: Famotidine 20 MG Tablet PO SCH ×2 (13:37→21:41)
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
[2017-11-06] MEDS: Famotidine 20 MG Tablet PO SCH ×2 (09:24→22:12)
[2017-11-06] MEDS: Folic Acid 1 MG Tablet PO SCH (09:24)
[2017-11-06] MEDS: dilTIAZem CD 120 MG Capsule PO SCH (09:24)
[2017-11-06] MEDS: Polyethylene Glycol 3350 17 GM Packet PO SCH (09:24)
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
[2017-11-07] MEDS: Polyethylene Glycol 3350 17 GM Packet PO SCH (10:05)
[2017-11-07] MEDS: Folic Acid 1 MG Tablet PO SCH (10:05)
[2017-11-07] MEDS: dilTIAZem CD 120 MG Capsule PO SCH (10:05)
[2017-11-07] MEDS: Famotidine 20 MG Tablet PO SCH ×2 (10:05→21:02)
[2017-11-07] MEDS: Morphine Inj 4 MG/ML Vial IV.PUSH PRN (21:02)
[2017-11-08] MEDS: Famotidine 20 MG Tablet PO SCH ×2 (09:29→21:36)
[2017-11-08] MEDS: dilTIAZem CD 120 MG Capsule PO SCH (09:30)
[2017-11-08] MEDS: Folic Acid 1 MG Tablet PO SCH (09:30)
[2017-11-08] MEDS: Polyethylene Glycol 3350 17 GM Packet PO SCH (09:31)
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
[2017-11-09] MEDS: Famotidine 20 MG Tablet PO SCH (09:28)
[2017-11-09] MEDS: Polyethylene Glycol 3350 17 GM Packet PO SCH (09:28)
[2017-11-09] MEDS: dilTIAZem CD 120 MG Capsule PO SCH (09:28)
[2017-11-09] MEDS: Folic Acid 1 MG Tablet PO SCH (09:28)
[2017-11-09 09:41] VITALS: BP 118/66; RESP 18; TEMP 97.8; O2SAT 98
[2017-11-09 20:26] VITALS: PULSE 95
== END 2017-11-09 12:58 ==
LOC: NEDA 14:08 → HIMC 14:27 → N04 10-20 16:38
PROVIDERS: ADMIT Internal Medicine; ATTEND Internal Medicine

== ENCOUNTER 2017-12-24 17:56 | Inpatient (IN) ==
[2017-12-24 21:03] LABS: Baso # (Auto) 0.1 th/mm3 (0.0-0.2); Baso % (Auto) 0.9 % (0.0-2.0); Eos # (Auto) 0.1 th/mm3 (0.0-0.4); Eos % (Auto) 1.6 % (0.0-4.0); Hematocrit 43.8 % (39.0-51.0); Hemoglobin 15.1 gm/dL (13.0-17.0); Lymph # (Auto) 4.1 th/mm3 (1.0-4.8); Lymph % (Auto) 61.6 % (9.0-44.0); Mean Corpuscular HGB Conc 34.4 % (32.0-36.0); Mean Corpuscular Hemoglobin 34.3 pg (27.0-34.0); Mean Corpuscular Volume 99.9 fL (80.0-100.0); Mean Platelet Volume 7.9 fL (7.0-11.0); Mono # (Auto) 0.5 th/mm3 (0.0-0.9); Mono % (Auto) 6.8 % (0.0-8.0); Neut # (Auto) 1.9 th/mm3 (1.8-7.7); Neut % (Auto) 29.1 % (16.0-70.0); Platelet Count 105 th/mm3 (150-450); Red Blood Count 4.39 mil/mm3 (4.50-5.90); Red Cell Distribution Width 13.9 % (11.6-17.2); White Blood Count 6.7 th/mm3 (4.0-11.0)
[2017-12-24 21:09] LABS: Bilirubin,Urine Negative (Negative); Clarity,Urine Hazy (Clear); Color,Urine Yellow (Yellw/Straw); Glucose,Urine (UA) Negative (Negative); Hyaline Casts,Urine 10 /lpf (0-3); Leukocyte Esterase,Urine Negative (Negative); Mucus,Urine Few /lpf (Occasional); Nitrite,Urine Negative (Negative); Specific Gravity,Urine 1.011 (1.002-1.035); Squamous Epithelial Cell,Urine <1 /hpf (0-5); Urobilinogen,Urine 4 or Greater mg/dL (Less than 2)
[2017-12-24] MEDS ORDERED: Folic Acid 1 MG Tablet PO ONE (21:11)
[2017-12-24] MEDS ORDERED: Thiamine Inj 100 MG in Sodium Chlor 0.9% Inj 100 ML IV.SIG ONE (21:11)
[2017-12-24] MEDS ORDERED: Sod Chloride 0.9% Inj 1,000 ML IV.SIG SCH (21:15)
[2017-12-24 21:26] LABS: Albumin 4.1 g/dL (3.4-5.0); Anion Gap 9 meq/L (5-15); Aspartate Aminotransferase 93 U/L (15-37); Blood Urea Nitrogen 3 mg/dL (7-18); Calcium 8.4 mg/dL (8.5-10.1); Carbon Dioxide 26.3 meq/L (21.0-32.0); Chloride 102 meq/L (98-107); Glomerular Filtration Rate Greater Than 89 mL/min (>89); Glucose,Random 87 mg/dL (74-106); Lipase 1290 U/L (73-393); Potassium 3.9 meq/L (3.5-5.1); Sodium 137 meq/L (136-145)
[2017-12-24 21:27] LABS: Alanine Aminotransferase 54 U/L (12-78)
[2017-12-24 21:29] LABS: Alkaline Phosphatase 70 U/L (45-117); Total Protein 9.2 g/dL (6.4-8.2)
--- NOTE | 2017-12-24 21:29 | ED ---
HPI General Chief Complaint: Abdominal Pain Stated Complaint: Abd Pain Time Seen by Provider: 12/24/17 20:46 Source: patient Mode of arrival: ambulatory Limitations: no limitations History of Present Illness HPI narrative: Patient is a 62-year-old male presenting to emerge from for evaluation of right lower quadrant abdominal pain. Patient states it started a week ago, pain is intermittent in nature. He states it does not bother him most of the time but it started bothering him this morning. He states the pain is aching in nature, a 4 out of 10. There are no alleviating or exacerbating factors. Patient denies any nausea, vomiting, fever, chills, chest pain, shortness of breath. Patient states that he has been drinking alcohol today, he states he only had a 4 pack of beer. He does drink on a daily basis. Patient denies any other complaints at this time. MD complaint: abdominal pain Onset (ago): week(s) (1) Pain Consistency: intermittent Location: RLQ Severity: mild Severity scale (1-10): 4 Quality: aching Radiation: none Migration to: no migration Relieving factors: nothing Exacerbating factors: nothing Associated symptoms: denies other symptoms Related Data Previous Rx's Medication Instructions Recorded clonidine HCl [Catapres] 0.1 mg PO Q8HR tab 11/05/17 diltiazem HCl 120 mg PO DAILY cap 11/05/17 famotidine 20 mg PO BID tab 11/05/17 folic acid 1 mg PO DAILY tab 11/05/17 multivitamin with folic acid 1 tab PO DAILY tab 11/05/17 [Thera] thiamine HCl (vitamin B1) 100 mg PO DAILY tab 11/05/17 hydrocodone-acetaminophen [Luray] 1 tab PO Q8H PRN #6 tab 11/09/17 Allergies Allergy/AdvReac Type Severity Reaction Status Date / Time *MDRO Multi-Drug Resistant AdvReac Unknown Uncoded 10/27/14 16:06 Organism Review of Systems ROS: all other systems reviewed are negative [facility] Medical History Medical History Hepatitis B (Acute) Hypertension (Acute) Surgical History Surgical History History of facial surgery (Acute) History of back surgery (Acute) Social History Social History Smoking Status: Current every day smoker Tobacco Type: Cigarettes How Often Do You Have a Drink Containing Alcohol: 4 or more times a week Recent Travel in [facility] within the Last 8 Weeks: No Recent Out of Country Travel within the Last 8 Weeks: No Immunization History Tetanus Immunization: Unsure Hx Influenza Vaccine This Season: No Exam Narrative Exam Narrative: GENERAL: Well-developed, well-nourished, alert male. Appears restless, no acute distress. SKIN: Focused skin assessment warm/dry. Healing burn to the right lower quadrant. No induration, exudate noted. HEAD: Atraumatic. Normocephalic. EYES: Pupils equal and round. No scleral icterus. No injection or drainage. ENT: No nasal bleeding or discharge. Mucous membranes pink and moist. NECK: Trachea midline. No JVD. CARDIOVASCULAR: Regular rate and rhythm. No murmur appreciated. RESPIRATORY: No accessory muscle use. Clear to auscultation. Breath sounds equal bilaterally. GASTROINTESTINAL: Abdomen soft, mildly tender to palpation in right lower quadrant, nondistended. Hepatic and splenic margins not palpable. Positive bowel sounds, no rebound, no guarding. MUSCULOSKELETAL: No obvious deformities. No clubbing. No cyanosis. No edema. NEUROLOGICAL: Awake and alert. No obvious cranial nerve deficits. Motor grossly within normal limits. Normal speech. PSYCHIATRIC: Appropriate mood and affect; insight and judgment normal. Course Consultations Consultation #1: The patient's case including history, pertinent physical examination findings, and laboratory studies were discussed with Dr. Obrien. It was agreed that the patient would be admitted to the hospitalist service. Time: 01:14 Initial Documented Vital Signs Temperature 98.0 F 12/24/17 18:05 Pulse Rate 101 H 12/24/17 18:05 Respiratory Rate 14 12/24/17 18:05 Blood Pressure 124/94 H 12/24/17 18:05 Pulse Oximetry 97 12/24/17 18:05 Last Documented Vital Signs Temperature 98.0 F 12/24/17 18:05 Pulse Rate 101 H 12/24/17 18:05 Respiratory Rate 14 12/24/17 18:05 Blood Pressure 124/94 H 12/24/17 18:05 Pulse Oximetry 97 12/24/17 18:05 Sign Out Sign Out Data: Patient Sign Out occurred on 12/24/17 at 23:00. Patient's care was discussed, and care was transferred from Karen Lin to Velia Quevedo MD. Sign Out Comment: Pt presented with RLQ abdominal pain. Intermittent. Labs unremarkable other than a blood alcohol level of 319. Pt was given IVF, ativan. He was slightly tremulous on arrival. CT scan of the abdomen is pending Last updated by Karen Lin ARNP at 12/24/17 22:40 Post-Handoff Eval: The patient's case was checked out to me by Karen. Please see her initial history and physical. The patient arrived with abdominal pain and symptoms of tremulousness. The patient reports a history of daily alcohol intake. Medical Decision Making RAJEEV Attestation RAJEEV supervised visit: Yes Attestation: I, Dr. Quevedo, have reviewed the advance practice practitioner's documentation and am in agreement, met with the patient face to face, made the diagnosis, and the medical decision making was done by me. The patient was initially evaluated by Karen, the ART OBJECTS SUPERVISOR. Please see their complete history and physical. *My assessment and Findings: The patient presents with history of abdominal pain in the right lower quadrant During the course of the patient's emergency department visit, the patient's history, examination, and differential diagnosis were reviewed with the patient. The patient was placed on a potline monitor with oximetry and frequent blood pressure monitoring. The patient had IV access obtained and blood work sent for analysis. The patient was initially provided normal saline IV fluids, Ativan 0.5 mg IV 1 for alcohol related withdrawal symptoms. The patient's studies were reviewed and remarkable for a chemistry that was remarkable for a calcium of 8.4, AST 93, total protein 9.2, lipase 1290. CBC shows a white count of 6.7, hemoglobin 15.1, platelets 105 with 61.6 lymphocytes. Urinalysis shows hazy urine trace ketones, otherwise unremarkable. Alcohol level is 319. CT scan of the abdomen and pelvis reveals no acute findings, diffuse fatty liver, no calcified gallstones or ductal dilatation. The patient's results were discussed with the patient, including the plan of care. I explained that further testing and/ or monitoring is indicated based on the patient's history, examination, and/ or laboratory findings. Therefore, I recommended admission for additional evaluation. The patient expressed understanding and was agreeable with this plan. The patient was admitted to the hospital in stable condition and sent to a bed under the care of the [facility] service. MDM Narrative Medical decision making narrative: Patient is a 62-year-old male presenting for evaluation of right lower quadrant abdominal pain. Labs imaging ordered and pending. Patient appears restless, Ativan was ordered, will assess an alcohol level. Labs reviewed, no acute findings. Blood alcohol 319. Pt is resting comfortably. CT scan pending. Medical Screen Exam Complete: Yes Emergency Medical Condition: Yes Differential Diagnosis Differential Diagnosis: Musculoskeletal pain versus appendicitis versus diverticulitis versus metabolic abnormality versus other Medical Records Medical records reviewed: Yes I reviewed the patient's medical records. Lab Data Lab results reviewed: Yes I reviewed the patient's lab results. Result diagrams: 12/24/17 19:36 12/24/17 19:36 Lab Results 12/24/17 12/24/17 12/24/17 Range/Units 19:36 19:36 19:36 WBC 6.7 (4.0-11.0) th/mm3 RBC 4.39 L (4.50-5.90) mil/mm3 Hgb 15.1 (13.0-17.0) gm/dL Hct 43.8 (39.0-51.0) % MCV 99.9 (80.0-100.0) fL MCH 34.3 H (27.0-34.0) pg MCHC 34.4 (32.0-36.0) % RDW 13.9 (11.6-17.2) % Plt Count 105 L (150-450) th/mm3 MPV 7.9 (7.0-11.0) fL Prelim Diff (Auto) Slide review pending Neut % (Auto) 29.1 (16.0-70.0) % Lymph % (Auto) 61.6 H (9.0-44.0) % [place] % (Auto) 6.8 (0.0-8.0) % Eos % (Auto) 1.6 (0.0-4.0) % Baso % (Auto) 0.9 (0.0-2.0) % Neut # (Auto) 1.9 (1.8-7.7) th/mm3 Lymph # (Auto) 4.1 (1.0-4.8) th/mm3 [place] # (Auto) 0.5 (0.0-0.9) th/mm3 Eos # (Auto) 0.1 (0.0-0.4) th/mm3 Baso # (Auto) 0.1 (0.0-0.2) th/mm3 WBC Differential . Diff Scan Auto diff confirmed Differential Comment . Sodium 137 (136-145) meq/L Potassium 3.9 (3.5-5.1) meq/L Chloride 102 (98-107) meq/L Carbon Dioxide 26.3 (21.0-32.0) meq/L Anion Gap 9 (5-15) meq/L BUN 3 L (7-18) mg/dL Creatinine 0.74 (0.60-1.30) mg/dL Estimated GFR Greater than 89 (>89) mL/min Random Glucose 87 (74-106) mg/dL Calcium 8.4 L (8.5-10.1) mg/dL Total Bilirubin 0.4 (0.2-1.0) mg/dL AST 93 H (15-37) U/L ALT 54 (12-78) U/L Alkaline Phosphatase 70 (45-117) U/L Total Protein 9.2 H (6.4-8.2) g/dL Albumin 4.1 (3.4-5.0) g/dL Lipase 1290 H (73-393) U/L Urine Color Yellow (Yellw/Straw) Urine Clarity Hazy H (Clear) Urine pH 5.0 (5.0-8.5) Ur Specific [place] 1.011 (1.002-1.035) Urine Protein Negative (Neg-Trace) mg/dL Urine Glucose (UA) Negative (Negative) mg/dL Urine Ketones Trace H (Negative) mg/dL Urine Occult Blood Negative (Negative) Urine Nitrate Negative (Negative) Urine Bilirubin Negative (Negative) Urine Urobilinogen 4 or greater (Less than 2) mg/dL Ur Leukocyte Esterase Negative (Negative) Urine RBC Less than 1 (0-3) /hpf Urine WBC 1 (0-5) /hpf Ur Squamous Epith Cells <1 (0-5) /hpf Hyaline Casts 10 (0-3) /lpf Urine Mucus Few H (Occasional) /lpf Micro UA Comment Culture not ind Ur Microscopic Review Not Reportable Urine Culture Comments Culture not ind Serum Alcohol (0-5) mg/dL 12/24/17 Range/Units 19:36 WBC (4.0-11.0) th/mm3 RBC (4.50-5.90) mil/mm3 Hgb (13.0-17.0) gm/dL Hct (39.0-51.0) % MCV (80.0-100.0) fL MCH (27.0-34.0) pg MCHC (32.0-36.0) % RDW (11.6-17.2) % Plt Count (150-450) th/mm3 MPV (7.0-11.0) fL Prelim Diff (Auto) Neut % (Auto) (16.0-70.0) % Lymph % (Auto) (9.0-44.0) % [place] % (Auto) (0.0-8.0) % Eos % (Auto) (0.0-4.0) % Baso % (Auto) (0.0-2.0) % Neut # (Auto) (1.8-7.7) th/mm3 Lymph # (Auto) (1.0-4.8) th/mm3 [place] # (Auto) (0.0-0.9) th/mm3 Eos # (Auto) (0.0-0.4) th/mm3 Baso # (Auto) (0.0-0.2) th/mm3 WBC Differential Diff Scan Differential Comment Sodium (136-145) meq/L Potassium (3.5-5.1) meq/L Chloride (98-107) meq/L Carbon Dioxide (21.0-32.0) meq/L Anion Gap (5-15) meq/L BUN (7-18) mg/dL Creatinine (0.60-1.30) mg/dL Estimated GFR (>89) mL/min Random Glucose (74-106) mg/dL Calcium (8.5-10.1) mg/dL Total Bilirubin (0.2-1.0) mg/dL AST (15-37) U/L ALT (12-78) U/L Alkaline Phosphatase (45-117) U/L Total Protein (6.4-8.2) g/dL Albumin (3.4-5.0) g/dL Lipase (73-393) U/L Urine Color (Yellw/Straw) Urine Clarity (Clear) Urine pH (5.0-8.5) Ur Specific [place] (1.002-1.035) Urine Protein (Neg-Trace) mg/dL Urine Glucose (UA) (Negative) mg/dL Urine Ketones (Negative) mg/dL Urine Occult Blood (Negative) Urine Nitrate (Negative) Urine Bilirubin (Negative) Urine Urobilinogen (Less than 2) mg/dL Ur Leukocyte Esterase (Negative) Urine RBC (0-3) /hpf Urine WBC (0-5) /hpf Ur Squamous Epith Cells (0-5) /hpf Hyaline Casts (0-3) /lpf Urine Mucus (Occasional) /lpf Micro UA Comment Ur Microscopic Review Urine Culture Comments Serum Alcohol 319 H (0-5) mg/dL Imaging Data Radiologist's impression: Abdomen/Pelvis CT 12/25/17 00:00 CONCLUSION: 1. No acute findings. Diffuse fatty liver. No calcified gallstones or ductal dilatation. Discharge Plan Discharge Disposition Patient Disposition: 30 Still Patient Discharge Details Diagnosis: Acute alcoholic pancreatitis Physicians Team ED Provider: Velia Quevedo Rxs /Orders / Referrals /Forms Prescriptions: No Action clonidine HCl [Catapres] 0.1 mg Tablet 0.1 mg PO Q8HR RF: 0 thiamine HCl (vitamin B1) 100 mg Tablet 100 mg PO DAILY RF: 0 famotidine 20 mg Tablet 20 mg PO BID RF: 0 diltiazem HCl 120 mg Capsule,Extended Release 24hr 120 mg PO DAILY RF: 0 folic acid 1 mg Tablet 1 mg PO DAILY RF: 0 multivitamin with folic acid [Thera] 400 mcg Tablet 1 tab PO DAILY RF: 0 hydrocodone-acetaminophen [Luray] 5-325 mg Tablet 1 tab PO Q8H PRN (Reason: acute pain) Qty: 6 RF: 0 Status ED Status: With Doctor
--- NOTE | 2017-12-25 00:51 | CT ---
EXAM DATE: 12/25/2017 12:45 AM EDT AGE/SEX: 62 years / Male INDICATIONS: Right upper quadrant pain. CLINICAL DATA: This is the patient's initial encounter. Patient reports that signs and symptoms have been present for 1 day and indicates a pain score of 7/10. MEDICAL/SURGICAL HISTORY: Hypertension. Hepatitis C. None. ORAL CONTRAST: No oral contrast ingested. RADIATION DOSE: 7.11 CTDI (mGy) [place] [facility] [place]/13/2017. . TECHNIQUE: Multiple contiguous axial images were obtained through the abdomen and pelvis following b olus infusion of 95 ml Omnipaque 350 (iohexol) nonionic water-soluble contrast as a single exam dos e. No oral contrast ingested. Using automated exposure control and adjustment of the mA and/or kV ac cording to patient size, radiation dose was kept as low as reasonably achievable to obtain optimal di agnostic quality images. DICOM format image data is available electronically for review and comparis on. FINDINGS: Lung bases are clear. Diffuse fatty liver. No acute findings in the spleen, adrenals, kidneys or panc reas. No calcified gallstones or biliary ductal dilatation. No free fluid. No bowel obstruction. No adenopathy. CONCLUSION: 1. No acute findings. Diffuse fatty liver. No calcified gallstones or ductal dilatation. Electronically signed by: Michael Villagomez MD 12/25/2017 12:50 AM EDT
[2017-12-25] MEDS ORDERED: LORazepam 1 MG Tablet PO PRN (02:38)
[2017-12-25] MEDS ORDERED: Haloperidol Inj 5 MG/ML Ampul IV.PUSH PRN (02:38)
[2017-12-25] MEDS ORDERED: Morphine Sulfate Inj 2 MG/ML Vial IV.PUSH PRN (03:22)
--- NOTE | 2017-12-25 03:24 | P.HPIM ---
History of Present Illness Service: [facility] Primary Care Physician: No Primary Care Physician Chief Complaint: abdominal pain History of Present Illness: 62 y/o male with a history of etoh abuse, and HTN presented to the ED with complaints of abdominal pain. Patient states he had abdominal pain today after drinking 2 beers. It was a 10/10, intermittent, sharp, pain to RUQ with no radiation and associated nausea. He denies any fever or chills, no chest pain or sob noted. Inpatient Certification: I certify that the inpatient services were ordered in accordance with Medicare regulations governing the order. This includes certification that hospital inpatient services are reasonable and necessary and in the case of services not specified as inpatient-only under 42 CFR 419.22(n), that they are appropriately provided as inpatient services in accordance to with the 2-midnight benchmark under 43 CFR 412.3(e) Estimated Total Length of Stay (Days): 2 Plans for Post Hospital Care: Home Review of Systems All other systems reviewed negative except as stated in HPI [facility] - History History Provided By: Patient, Environmental Systems Coordinator / EMT - Medical History Medical History: Medical History (Last Reviewed 12/25/17 @ 03:18 by OSCAR William) Hepatitis B (Acute) Hypertension (Acute) - Surgical History Surgical History: Surgical History (Last Reviewed 12/25/17 @ 03:18 by OSCAR Willaim) History of facial surgery (Acute) History of back surgery (Acute) H/O skin graft - Family History Family History: Family History (Last Reviewed 12/25/17 @ 03:18 by OSCAR William) Other Family history unknown - Tobacco History Tobacco Use In Past 30 Days: Yes Smoking Status: Current every day smoker Tobacco Type: Cigarettes - Alcohol History How Often Do You Have a Drink Containing Alcohol: 4 or more times a week - Travel History Recent Travel in the [place] Within the Last 8 Weeks: No Recent Travel Out of the Country Within the Last 8 Weeks: No - Immunization History Tetanus Immunization: Unsure Hx Influenza Vaccine This Season: No Medications and Allergies Active Medications: Active Medications Clonidine HCl (Catapres) 0.1 mg PO Q8HR NICK Diltiazem HCl (Cardizem Cd 24hr) 120 mg PO DAILY NICK Famotidine (Pepcid) 20 mg PO BID NICK Flumazenil (Romazecon Inj) 0.2 mg IV.PUSH Q1M PRN PRN Reason: OVERSEDATION Haloperidol Lactate (Haldol Inj) 1 mg IV.PUSH Q15M PRN PRN Reason: for severe agitation Heparin Sodium (Porcine) (Heparin Inj) 5,000 units SQ Q12H NICK Sodium Chloride (Ns Inj) 1,000 mls @ 0 mls/hr IV.SIG BOLUS NICK Last Infusion: 12/24/17 23:08 Dose: Infused Sodium Chloride (Ns Inj) 1,000 mls @ 150 mls/hr IV.CONT .Q6H40M NICK Multivitamins 10 ml/ Folic (Acid 1 mg/ Sodium Chloride) 510.2 mls @ 125 mls/hr IV.SIG DAILY NICK Stop: 12/30/17 08:59 Lorazepam (Ativan) 1 mg PO Q4H PRN PRN Reason: for CIWA 8-10 Lorazepam (Ativan) 2 mg PO Q2H PRN PRN Reason: for CIWA 11-14 Lorazepam (Ativan Inj) 2 mg IV.PUSH Q2H PRN PRN Reason: for CIWA 11-14 Lorazepam (Ativan Inj) 2 mg IV.PUSH Q1H PRN PRN Reason: for CIWA 15-20 Lorazepam (Ativan Inj) 1 mg IV.PUSH Q4H PRN PRN Reason: for CIWA 8-10 Lorazepam (Ativan Inj) 2 mg IV.PUSH Q15M PRN PRN Reason: for CIWA > 20 Thiamine HCl (Vitamin B1) 100 mg PO DAILY NICK Allergies Allergy/AdvReac Type Severity Reaction Status Date / Time *MDRO Multi-Drug Resistant AdvReac Unknown Uncoded 10/27/14 16:06 Organism Exam Vital signs: Vital Signs 12/24/17 18:05 Temperature 98.0 F Pulse Rate 101 H Respiratory Rate 14 Blood Pressure 124/94 H Pulse Oximetry 97 Intake & Output 12/24/17 12/24/17 12/25/17 06:59 18:59 06:59 Intake Total 1101 / 1101 Balance 1101 / 1101 Weight 63.503 kg Intake: IV 1101 / 1101 NS Inj 1,000 ML @ Wide Open IV. 1000 / 1000 SIG BOLUS NICK Rx#:[id number] Thiamine Inj 100 MG In NS Inj 101 / 101 100 ML @ 100 mls/hr IV.SIG ONCE ONE Rx#:[id number] Narrative: GENERAL: This is a well-nourished, well-developed patient, in no apparent distress. CARDIOVASCULAR: Regular rate and rhythm without murmurs, gallops, or rubs. RESPIRATORY: Clear to auscultation. Breath sounds equal bilaterally. No wheezes , rales, or rhonchi. GASTROINTESTINAL: Abdomen soft, RUQ tenderness, nondistended. Normal active bowel sounds MUSCULOSKELETAL: Extremities without clubbing, cyanosis, or edema. NEURO: Alert & Oriented x4 to person, place, time, situation. Moves all ext x4 Results - Labs CBC & Chem 7: 12/24/17 19:36 12/24/17 19:36 Labs: Short CBC 12/24/17 Range/Units 19:36 WBC 6.7 (4.0-11.0) th/mm3 Hgb 15.1 (13.0-17.0) gm/dL Hct 43.8 (39.0-51.0) % Plt Count 105 L (150-450) th/mm3 BMP 12/24/17 19:36 Sodium 137 Potassium 3.9 Chloride 102 Carbon Dioxide 26.3 BUN 3 L Creatinine 0.74 Calcium 8.4 L Liver Function 12/24/17 Range/Units 19:36 Total Bilirubin 0.4 (0.2-1.0) mg/dL AST 93 H (15-37) U/L ALT 54 (12-78) U/L Alkaline Phosphatase 70 (45-117) U/L Albumin 4.1 (3.4-5.0) g/dL Urine 12/24/17 Range/Units 19:36 Urine Color Yellow (Yellw/Straw) Urine Clarity Hazy H (Clear) Urine pH 5.0 (5.0-8.5) Ur Specific [place] 1.011 (1.002-1.035) Urine Protein Negative (Neg-Trace) mg/dL Urine Glucose (UA) Negative (Negative) mg/dL - Imaging Impressions Abdomen/Pelvis CT 12/25/17 00:00 CONCLUSION: 1. No acute findings. Diffuse fatty liver. No calcified gallstones or ductal dilatation. Caprini VTE Risk Assessment Caprini VTE Risk Assessment: No/Low Risk (score <= 1) Caprini Risk Assessment Model: Point Value = 1 Point Value = 2 Point Value = 3 Point Value = 5 Age 41-60 Minor surgery BMI > 25 kg/m2 Swollen legs Varicose veins or History of unexplained or recurrent spontaneous Oral contraceptives or hormone replacement Sepsis (< 1 month) Serious lung disease, including pneumonia (< 1 month) Abnormal pulmonary function Acute myocardial infarction Congestive heart failure (< 1 month) History of inflammatory bowel disease Medical patient at bed rest Age 61-74 Arthroscopic surgery Major open surgery (> 45 min) Laparoscopic surgery (> 45 min) Malignancy Confined to bed (> 72 hours) Immobilizing plaster cast Central venous access Age >= 75 History of VTE Family history of VTE Factor V Leiden Prothrombin [id number] Lupus anticoagulant Anticardiolipin antibodies Elevated serum homocysteine Heparin-induced thrombocytopenia Other congenital or acquired thrombophilia Stroke (< 1 month) Elective arthroplasty Hip, pelvis, or leg fracture Acute spinal cord injury (< 1 month) Prophylaxis Regimen: Total Risk Factor Score Risk Level Prophylaxis Regimen 0-1 Low Early ambulation 2 Moderate Order ONE of the following: *Sequential Compression Device (SCD) *Heparin 5000 units SQ BID 3-4 Higher Order ONE of the following medications: *Heparin 5000 units SQ TID *Enoxaparin/Lovenox 40 mg SQ daily (WT < 150 kg, CrCl > 30 mL/min) *Enoxaparin/Lovenox 30 mg SQ daily (WT < 150 kg, CrCl > 10-29 mL/min) *Enoxaparin/Lovenox 30 mg SQ BID (WT < 150 kg, CrCl > 30 mL/min) AND/OR *Sequential Compression Device (SCD) 5 or more Highest Order ONE of the following medications: *Heparin 5000 units SQ TID (Preferred with Epidurals) *Enoxaparin/Lovenox 40 mg SQ daily (WT < 150 kg, CrCl > 30 mL/min) *Enoxaparin/Lovenox 30 mg SQ daily (WT < 150 kg, CrCl > 10-29 mL/min) *Enoxaparin/Lovenox 30 mg SQ BID (WT < 150 kg, CrCl > 30 mL/min) AND *Sequential Compression Device (SCD) Assessment and Plan - Plan acute pancreatitis, patient with elevated lipase 1290 and abdominal pain Abdominal CT reviewed and shows no acute findings IVF N.p.o. Pain management with morphine IV Lipase in a.m. Hypertension, chronic Resume home medications, monitor vitals EtOH abuse [place] protocol Seizure precautions Withdrawal precautions Encouraged to quit Multivitamin and thiamine ordered DVT prophylaxis: Heparin Discussed Condition With: Patient, ER physician and RN
[2017-12-25] MEDS: Sod Chloride 0.9% Inj 1,000 ML IV.CONT SCH ×4 (03:50→22:48)
[2017-12-25 07:08] LABS: Baso % (Auto) 0.6 % (0.0-2.0); Eos # (Auto) 0.1 th/mm3 (0.0-0.4); Eos % (Auto) 1.8 % (0.0-4.0); Hematocrit 40.2 % (39.0-51.0); Lymph # (Auto) 2.7 th/mm3 (1.0-4.8); Lymph % (Auto) 53.7 % (9.0-44.0); Mean Corpuscular HGB Conc 34.7 % (32.0-36.0); Mean Corpuscular Hemoglobin 34.2 pg (27.0-34.0); Mean Corpuscular Volume 98.3 fL (80.0-100.0); Mono # (Auto) 0.4 th/mm3 (0.0-0.9); Mono % (Auto) 7.3 % (0.0-8.0); Neut # (Auto) 1.8 th/mm3 (1.8-7.7); Neut % (Auto) 36.6 % (16.0-70.0); Platelet Count 92 th/mm3 (150-450); Red Blood Count 4.09 mil/mm3 (4.50-5.90); Red Cell Distribution Width 13.8 % (11.6-17.2); White Blood Count 4.9 th/mm3 (4.0-11.0)
[2017-12-25 07:42] LABS: Albumin 3.5 g/dL (3.4-5.0); Anion Gap 10 meq/L (5-15); Aspartate Aminotransferase 84 U/L (15-37); Blood Urea Nitrogen 3 mg/dL (7-18); Calcium 7.8 mg/dL (8.5-10.1); Carbon Dioxide 23.3 meq/L (21.0-32.0); Chloride 108 meq/L (98-107); Glomerular Filtration Rate Greater Than 89 mL/min (>89); Glucose,Random 68 mg/dL (74-106); Lipase 307 U/L (73-393); Sodium 141 meq/L (136-145)
[2017-12-25 07:43] LABS: Alanine Aminotransferase 47 U/L (12-78)
[2017-12-25 07:45] LABS: Alkaline Phosphatase 61 U/L (45-117); Total Protein 7.7 g/dL (6.4-8.2)
[2017-12-25] MEDS: dilTIAZem CD 120 MG Capsule PO SCH (09:47)
[2017-12-25] MEDS: Famotidine 20 MG Tablet PO SCH ×2 (09:47→20:13)
[2017-12-25] MEDS: Heparin - SQ 10,000 UNITS/ML Vial SQ SCH ×2 (09:47→20:13)
[2017-12-25] MEDS: Multivitamin Inj 10 ML, Folic Acid Inj 1 MG in Sodium Chlor 0.9% Inj 500 ML IV.SIG SCH (10:25)
--- NOTE | 2017-12-25 15:34 | P.PNIM ---
Subjective Interval history: Patient reports abdominal pain much better. Has not had nausea or vomiting today. Has had some sips of water. No fevers or chills. Physical Exam Vital signs: Vital Signs 12/24/17 18:05 12/25/17 06:01 12/25/17 07:55 Temperature 98.0 F 98.0 F Pulse Rate 101 H 81 84 Respiratory Rate 14 18 16 Blood Pressure 124/94 H 156/94 H 151/89 H Pulse Oximetry 97 97 93 L 12/25/17 12:00 Temperature 98.1 F Pulse Rate 78 Respiratory Rate 22 Blood Pressure 162/98 H Pulse Oximetry 96 Intake & Output 12/24/17 12/25/17 12/25/17 18:59 06:59 18:59 Intake Total 1101 / 1101 510.2 / 510.2 Balance 1101 / 1101 510.2 / 510.2 Weight 63.503 kg Intake: IV 1101 / 1101 510.2 / 510.2 MVI-12 Inj 10 ML Folvite Inj 1 510.2 / 510.2 MG In NS Inj 500 ML @ 125 mls/ hr IV.SIG DAILY [facility] Rx#: [id number] NS Inj 1,000 ML @ Wide Open IV. 1000 / 1000 SIG BOLUS [facility] Rx#:[id number] Thiamine Inj 100 MG In NS Inj 101 / 101 100 ML @ 100 mls/hr IV.SIG ONCE ONE Rx#:[id number] Narrative: GENERAL: This is a well-nourished, well-developed patient, in no apparent distress. CARDIOVASCULAR: Regular rate and rhythm without murmurs, gallops, or rubs. RESPIRATORY: Clear to auscultation. Breath sounds equal bilaterally. No wheezes , rales, or rhonchi. GASTROINTESTINAL: Mild epigastric tenderness no rebound guarding nondistended, normoactive bowel sounds. MUSCULOSKELETAL: Extremities without clubbing, cyanosis, or edema. NEURO: Alert & Oriented x4 to person, place, time, situation. Moves all ext x4 Results - Labs CBC & Chem 7: 12/25/17 05:30 12/25/17 05:30 Laboratory Results - last 24 hr 12/24/17 12/24/17 12/24/17 19:36 19:36 19:36 WBC 6.7 RBC 4.39 L Hgb 15.1 Hct 43.8 MCV 99.9 MCH 34.3 H MCHC 34.4 RDW 13.9 Plt Count 105 L MPV 7.9 Prelim Diff (Auto) Slide review pending Neut % (Auto) 29.1 Lymph % (Auto) 61.6 H [place] % (Auto) 6.8 Eos % (Auto) 1.6 Baso % (Auto) 0.9 Neut # (Auto) 1.9 Lymph # (Auto) 4.1 [place] # (Auto) 0.5 Eos # (Auto) 0.1 Baso # (Auto) 0.1 WBC Differential . Diff Scan Auto diff confirmed Differential Comment . Sodium 137 Potassium 3.9 Chloride 102 Carbon Dioxide 26.3 Anion Gap 9 BUN 3 L Creatinine 0.74 Estimated GFR Greater than 89 POC Glucose Random Glucose 87 Calcium 8.4 L Total Bilirubin 0.4 AST 93 H ALT 54 Alkaline Phosphatase 70 Total Protein 9.2 H Albumin 4.1 Lipase 1290 H Urine Color Yellow Urine Clarity Hazy H Urine pH 5.0 Ur Specific [place] 1.011 Urine Protein Negative Urine Glucose (UA) Negative Urine Ketones Trace H Urine Occult Blood Negative Urine Nitrate Negative Urine Bilirubin Negative Urine Urobilinogen 4 or greater Ur Leukocyte Esterase Negative Urine RBC Less than 1 Urine WBC 1 Ur Squamous Epith Cells <1 Hyaline Casts 10 Urine Mucus Few H Micro UA Comment Culture not ind Ur Microscopic Review Not Reportable Urine Culture Comments Culture not ind Serum Alcohol 12/24/17 12/25/17 12/25/17 19:36 05:30 05:30 WBC 4.9 RBC 4.09 L Hgb 14.0 Hct 40.2 MCV 98.3 MCH 34.2 H MCHC 34.7 RDW 13.8 Plt Count 92 L MPV 8.0 Prelim Diff (Auto) Slide review pending Neut % (Auto) 36.6 Lymph % (Auto) 53.7 H [place] % (Auto) 7.3 Eos % (Auto) 1.8 Baso % (Auto) 0.6 Neut # (Auto) 1.8 Lymph # (Auto) 2.7 [place] # (Auto) 0.4 Eos # (Auto) 0.1 Baso # (Auto) 0.0 WBC Differential . Diff Scan Auto diff confirmed Differential Comment . Sodium 141 Potassium 4.0 Chloride 108 H Carbon Dioxide 23.3 Anion Gap 10 BUN 3 L Creatinine 0.52 L Estimated GFR Greater than 89 POC Glucose Random Glucose 68 L Calcium 7.8 L Total Bilirubin 0.5 AST 84 H ALT 47 Alkaline Phosphatase 61 Total Protein 7.7 D Albumin 3.5 D Lipase 307 Urine Color Urine Clarity Urine pH Ur Specific [place] Urine Protein Urine Glucose (UA) Urine Ketones Urine Occult Blood Urine Nitrate Urine Bilirubin Urine Urobilinogen Ur Leukocyte Esterase Urine RBC Urine WBC Ur Squamous Epith Cells Hyaline Casts Urine Mucus Micro UA Comment Ur Microscopic Review Urine Culture Comments Serum Alcohol 319 H 12/25/17 12/25/17 08:45 13:13 WBC RBC Hgb Hct MCV MCH MCHC RDW Plt Count MPV Prelim Diff (Auto) Neut % (Auto) Lymph % (Auto) [place] % (Auto) Eos % (Auto) Baso % (Auto) Neut # (Auto) Lymph # (Auto) [place] # (Auto) Eos # (Auto) Baso # (Auto) WBC Differential Diff Scan Differential Comment Sodium Potassium Chloride Carbon Dioxide Anion Gap BUN Creatinine Estimated GFR POC Glucose 96 83 Random Glucose Calcium Total Bilirubin AST ALT Alkaline Phosphatase Total Protein Albumin Lipase Urine Color Urine Clarity Urine pH Ur Specific [place] Urine Protein Urine Glucose (UA) Urine Ketones Urine Occult Blood Urine Nitrate Urine Bilirubin Urine Urobilinogen Ur Leukocyte Esterase Urine RBC Urine WBC Ur Squamous Epith Cells Hyaline Casts Urine Mucus Micro UA Comment Ur Microscopic Review Urine Culture Comments Serum Alcohol - Imaging Impressions Abdomen/Pelvis CT 12/25/17 00:00 CONCLUSION: 1. No acute findings. Diffuse fatty liver. No calcified gallstones or ductal dilatation. Assessment and Plan - Plan acute pancreatitis,lipase trending down with bowel rest. At this time continue with supportive care and start clear liquid diet and advance as tolerated. This is likely due to alcoholic acute pancreatitis. CT abdomen review showed no acute findings. Start p.o. pain medication with IV morphine as breakthrough pain. Hypertension, essential,chronic Resume home medications, monitor vitals EtOH abusecessation counseling [facility] protocol Seizure precautions Withdrawal precautions Multivitamin and thiamine ordered DVT prophylaxis: Heparin Discharge Planning: Possible discharge in the morning if tolerates diet.
[2017-12-25] MEDS ORDERED: Naloxone Inj 0.4 MG/ML Vial IV.PUSH PRN (15:35)
[2017-12-25] MEDS ORDERED: Morphine Inj 4 MG/ML Vial IV.PUSH PRN (15:35)
[2017-12-25] MEDS ORDERED: Acetaminophen 325 MG Tablet PO PRN (15:35)
[2017-12-26] MEDS: Sod Chloride 0.9% Inj 1,000 ML IV.CONT SCH ×2 (04:51→13:44)
--- NOTE | 2017-12-26 08:34 | P.PNIM ---
Subjective Interval history: Abdominal pain better and tolerating clear liquids. No nausea or vomiting. Not feeling anxious. Physical Exam Vital signs: Vital Signs 12/25/17 12:00 12/25/17 16:00 12/25/17 20:00 Temperature 98.1 F 98.4 F 98.1 F Pulse Rate 78 78 80 Respiratory Rate 22 18 21 Blood Pressure 162/98 H 152/92 H 165/98 H Pulse Oximetry 96 98 97 12/26/17 04:57 Temperature 97.8 F Pulse Rate 77 Respiratory Rate 18 Blood Pressure 133/85 Pulse Oximetry 98 Intake & Output 12/25/17 12/26/17 12/26/17 18:59 06:59 18:59 Intake Total 510.2 / 510.2 360 / 360 Balance 510.2 / 510.2 360 / 360 Weight 73 kg Intake: IV 510.2 / 510.2 MVI-12 Inj 10 ML Folvite Inj 1 510.2 / 510.2 MG In NS Inj 500 ML @ 125 mls/ hr IV.SIG DAILY [facility] Rx#: [id number] Oral 360 / 360 Other: # Voids 2 Date of Last Bowel Movement 12/24/17 Narrative: GENERAL: This is a well-nourished, well-developed patient, in no apparent distress. CARDIOVASCULAR: Regular rate and rhythm without murmurs, gallops, or rubs. RESPIRATORY: Clear to auscultation. Breath sounds equal bilaterally. No wheezes , rales, or rhonchi. GASTROINTESTINAL: Mild epigastric tenderness no rebound guarding nondistended, normoactive bowel sounds. MUSCULOSKELETAL: Extremities without clubbing, cyanosis, or edema. NEURO: Alert & Oriented x4 to person, place, time, situation. Moves all ext x4 Results - Labs CBC & Chem 7: 12/25/17 05:30 12/25/17 05:30 Laboratory Results - last 24 hr 12/25/17 12/25/17 12/25/17 08:45 13:13 17:03 POC Glucose 96 83 77 Assessment and Plan - Plan 1. Acute pancreatitis,lipase trending down, tolerating clear liquid diet and advance as tolerated. This is likely due to alcoholic acute pancreatitis. CT abdomen review showed no acute findings. Start p.o. pain medication with IV morphine as breakthrough pain. 2. Hypertension, essential,chronic Resume home medications clonidine and diltiazem, monitor vitals 3. EtOH abusecessation counseling [facility] protocol Seizure precautions Withdrawal precautions Counseled to follow-up with Himanshu Eng as needed. Multivitamin and thiamine ordered 4. DVT prophylaxis: Heparin Discharge patient to home Condition on discharge: Improved Regular Diet as tolerated Ad Danay activity No new Rx written: Follow-up with primary care physician Discharge Planning: Possible discharge in the morning if tolerates diet.
[2017-12-26] MEDS: Heparin - SQ 10,000 UNITS/ML Vial SQ SCH (09:25)
[2017-12-26] MEDS: Multivitamin Inj 10 ML, Folic Acid Inj 1 MG in Sodium Chlor 0.9% Inj 500 ML IV.SIG SCH (09:26)
[2017-12-26] MEDS: dilTIAZem CD 120 MG Capsule PO SCH (09:26)
[2017-12-26] MEDS: Famotidine 20 MG Tablet PO SCH (09:26)
[2017-12-26 10:39] VITALS: TEMP 98.3; O2SAT 99
[2017-12-26 13:01] VITALS: BP 139/85; PULSE 82; RESP 18
== END 2017-12-26 15:31 | disposition home or self-care (01) ==
LOC: NEPE 17:56 → NEDA 12-25 01:26 → NEPHCDU 12-25 06:30 → N07 12-26 04:19
PROVIDERS: ADMIT Family Medicine; ATTEND Family Medicine

== ENCOUNTER 2018-06-01 10:51 | Observation (INO) ==
[2018-06-01] MEDS ORDERED: Vancomycin Inj 1,000 MG in Sodium Chlor 0.9% Inj 250 ML IV.SIG ONE (11:30)
--- NOTE | 2018-06-01 11:40 | ED ---
HPI General Chief complaint: Skin/Abscess/Foreign Body Stated complaint: Skin Complaint Time Seen by Provider: 06/01/18 11:27 History of Present Illness HPI narrative: This patient complains of an abscess and infection in his left arm. He says is been there 3 days. It is become red and swollen and painful. He denies fever. History of IV drug abuse but says he has not used any in the last 10 years. Severity is moderate. No alleviating factors. No exacerbating factors. Related Data Previous Rx's Medication Instructions Recorded clonidine HCl [Catapres] 0.1 mg PO Q8HR tab 11/05/17 Allergies Allergy/AdvReac Type Severity Reaction Status Date / Time No Known Allergies Allergy Verified 06/01/18 11:12 Review of Systems ROS: all other systems reviewed are negative [facility] Medical History Medical History Hepatitis B (Acute) Hypertension (Acute) Surgical History Surgical History History of facial surgery (Acute) History of back surgery (Acute) H/O skin graft (Acute) Family History Family History Other Family history unknown Social History Social History Substance History: Past History Second Hand Smoke Exposure: Yes Smoking Status: Current every day smoker Tobacco Type: Cigarettes How Often Do You Have a Drink Containing Alcohol: 4 or more times a week Recent Travel in [facility] within the Last 8 Weeks: No Recent Out of Country Travel within the Last 8 Weeks: No Immunization History Tetanus Immunization: >5 Years Exam Narrative Exam Narrative: GENERAL: Well-nourished, well-developed patient in no apparent distress. SKIN: Focused skin assessment reveals several scabbed lesions on the upper extremities . Skin is Warm and dry. HEAD: Atraumatic. Normocephalic. EYES: Pupils equal and round. No scleral icterus. No injection or drainage. ENT: No nasal bleeding or discharge. Mucous membranes pink and moist. NECK: Trachea midline. No JVD. CARDIOVASCULAR: Regular rate and rhythm. No murmur appreciated. RESPIRATORY: No accessory muscle use. Clear to auscultation. Breath sounds equal bilaterally. GASTROINTESTINAL: Abdomen soft, non-tender, nondistended. Hepatic and splenic margins not palpable. MUSCULOSKELETAL: No obvious deformities. No clubbing. No cyanosis. No edema. Patient has an elevated indurated erythematous tender area in the left antecubital fossa crease. There is no active drainage but patient reports it has leaked some discharge recently. No spreading cellulitis from there. NEUROLOGICAL: Awake and alert. No obvious cranial nerve deficits. Motor grossly within normal limits. Normal speech. PSYCHIATRIC: Appropriate mood and affect; insight and judgment poor . Course Initial Documented Vital Signs Temperature 97.5 F L 06/01/18 11:01 Pulse Rate 105 H 06/01/18 11:01 Respiratory Rate 18 06/01/18 11:01 Blood Pressure 154/79 H 06/01/18 11:01 Pulse Oximetry 97 06/01/18 11:01 Last Documented Vital Signs Temperature 98.3 F 06/03/18 07:29 Pulse Rate 67 06/03/18 07:29 Respiratory Rate 16 06/03/18 07:29 Blood Pressure 109/64 06/03/18 07:29 Pulse Oximetry 97 06/03/18 07:29 Medical Decision Making MDM Narrative Medical decision making narrative: 63-year-old male with abscess or indurated cellulitis in the left antecubital fossa. Giving him IV vancomycin. Have ordered labs and blood cultures. He will get an x-ray to rule out foreign body such as fragmented needle and ultrasound to evaluate for drainable abscess. He will need admission for IV antibiotics X-ray shows no acute findings other than soft tissue swelling. Ultrasound is negative for DVT. CBC is unremarkable, chemistry with no acute findings. Patient denied any illicit drug use however he has a history of IV drug use, for this reason patient will be admitted for IV antibiotic therapy. Dr. Del Toro accepted admit. Orders placed. Pt agreeable to plan. Medical Screen Exam Complete: Yes Emergency Medical Condition: Yes Lab Data Lab results reviewed: Yes I reviewed the patient's lab results. Result diagrams: 06/02/18 07:24 06/02/18 07:24 Lab Results 06/01/18 06/01/18 06/02/18 Range/Units 11:45 11:45 07:24 WBC 8.5 6.3 (4.0-11.0) th/mm3 RBC 4.27 L 4.26 L (4.50-5.90) mil/mm3 Hgb 15.5 15.1 (13.0-17.0) gm/dL Hct 43.5 43.1 (39.0-51.0) % MCV 102.0 H 101.3 H (80.0-100.0) fL MCH 36.4 H 35.5 H (27.0-34.0) pg MCHC 35.7 35.1 (32.0-36.0) % RDW 12.9 12.9 (11.6-17.2) % Plt Count 188 167 (150-450) th/mm3 MPV 6.9 L 7.5 (7.0-11.0) fL Neut % (Auto) 56.0 49.9 (16.0-70.0) % Lymph % (Auto) 32.3 36.6 (9.0-44.0) % [place] % (Auto) 10.5 H 11.8 H (0.0-8.0) % Eos % (Auto) 0.3 0.8 (0.0-4.0) % Baso % (Auto) 0.9 0.9 (0.0-2.0) % Neut # (Auto) 4.8 3.1 (1.8-7.7) th/mm3 Lymph # (Auto) 2.7 2.3 (1.0-4.8) th/mm3 [place] # (Auto) 0.9 0.7 (0.0-0.9) th/mm3 Eos # (Auto) 0.0 0.0 (0.0-0.4) th/mm3 Baso # (Auto) 0.1 0.1 (0.0-0.2) th/mm3 WBC Differential . . Differential Comment Auto diff final Auto diff final Sodium 133 L (136-145) meq/L Potassium 3.7 (3.5-5.1) meq/L Chloride 100 (98-107) meq/L Carbon Dioxide 26.2 (21.0-32.0) meq/L Anion Gap 7 (5-15) meq/L BUN 3 L (7-18) mg/dL Creatinine 0.62 (0.60-1.30) mg/dL Estimated GFR Greater than 89 (>89) mL/min Random Glucose 90 (74-106) mg/dL Calcium 8.7 (8.5-10.1) mg/dL Total Bilirubin 0.4 (0.2-1.0) mg/dL AST 46 H (15-37) U/L ALT 31 (12-78) U/L Alkaline Phosphatase 65 (45-117) U/L Total Protein 8.6 H (6.4-8.2) g/dL Albumin 3.8 (3.4-5.0) g/dL 06/02/18 Range/Units 07:24 WBC (4.0-11.0) th/mm3 RBC (4.50-5.90) mil/mm3 Hgb (13.0-17.0) gm/dL Hct (39.0-51.0) % MCV (80.0-100.0) fL MCH (27.0-34.0) pg MCHC (32.0-36.0) % RDW (11.6-17.2) % Plt Count (150-450) th/mm3 MPV (7.0-11.0) fL Neut % (Auto) (16.0-70.0) % Lymph % (Auto) (9.0-44.0) % [place] % (Auto) (0.0-8.0) % Eos % (Auto) (0.0-4.0) % Baso % (Auto) (0.0-2.0) % Neut # (Auto) (1.8-7.7) th/mm3 Lymph # (Auto) (1.0-4.8) th/mm3 [place] # (Auto) (0.0-0.9) th/mm3 Eos # (Auto) (0.0-0.4) th/mm3 Baso # (Auto) (0.0-0.2) th/mm3 WBC Differential Differential Comment Sodium 132 L (136-145) meq/L Potassium 3.9 (3.5-5.1) meq/L Chloride 99 (98-107) meq/L Carbon Dioxide 25.9 (21.0-32.0) meq/L Anion Gap 7 (5-15) meq/L BUN 6 L (7-18) mg/dL Creatinine 0.58 L (0.60-1.30) mg/dL Estimated GFR Greater than 89 (>89) mL/min Random Glucose 88 (74-106) mg/dL Calcium 8.4 L (8.5-10.1) mg/dL Total Bilirubin (0.2-1.0) mg/dL AST (15-37) U/L ALT (12-78) U/L Alkaline Phosphatase (45-117) U/L Total Protein (6.4-8.2) g/dL Albumin (3.4-5.0) g/dL Imaging Data Radiologist's impression: Elbow X-Ray 06/01/18 11:31 CONCLUSION: No acute fracture left elbow. No foreign body Venous Doppler Study 06/01/18 11:31 CONCLUSION: 1. The study is negative for upper extremity deep venous thrombosis. Discharge Plan Discharge Disposition Patient Disposition: ED Admit(ED Internal Use Only) Discharge Condition Condition: Stable Discharge Order Discharge Orders: ED Use Only Admit Order (Routine); Ordered 06/01/18 Ordered By: Karen Lin Discharge Details Diagnosis: Cellulitis and abscess of other specified site Physicians Team ED Provider: Erasmo Stringer ED Midlevel Provider: Karen Lin Primary Care Provider: NON STAFF,PROVIDER Attending Provider: Alverto Del Toro Status ED Status: Left Department Discharge Information Discharge Date/Time: 06/01/18 15:41
[2018-06-01 12:10] LABS: Baso # (Auto) 0.1 th/mm3 (0.0-0.2); Baso % (Auto) 0.9 % (0.0-2.0); Eos % (Auto) 0.3 % (0.0-4.0); Hematocrit 43.5 % (39.0-51.0); Hemoglobin 15.5 gm/dL (13.0-17.0); Lymph # (Auto) 2.7 th/mm3 (1.0-4.8); Lymph % (Auto) 32.3 % (9.0-44.0); Mean Corpuscular HGB Conc 35.7 % (32.0-36.0); Mean Corpuscular Hemoglobin 36.4 pg (27.0-34.0); Mean Platelet Volume 6.9 fL (7.0-11.0); Mono # (Auto) 0.9 th/mm3 (0.0-0.9); Mono % (Auto) 10.5 % (0.0-8.0); Neut # (Auto) 4.8 th/mm3 (1.8-7.7); Platelet Count 188 th/mm3 (150-450); Red Blood Count 4.27 mil/mm3 (4.50-5.90); Red Cell Distribution Width 12.9 % (11.6-17.2); White Blood Count 8.5 th/mm3 (4.0-11.0)
--- NOTE | 2018-06-01 12:27 | US ---
EXAM DATE: 06/01/2018 12:23 PM EST AGE/SEX: 63 years / Male INDICATIONS: Left arm swelling. CLINICAL DATA: This is the patient's initial encounter. Patient reports that signs and symptoms have been present for 1 day and indicates a pain score of 3/10. MEDICAL/SURGICAL HISTORY: Hepatitis C. Hypertension. . Skin graft. Back surgery. Facial surger y. COMPARISON: No prior exams available for comparison. FINDINGS: The vessels are compressible and augmentation response is documented. No filling defects a re seen. The flow is phasic with respiration. Other: None. CONCLUSION: 1. The study is negative for upper extremity deep venous thrombosis. Electronically signed by: Piotr Spencer MD Board Certified Radiologist 06/01/2018 12:25 PM EST
[2018-06-01 12:31] LABS: Alanine Aminotransferase 31 U/L (12-78); Albumin 3.8 g/dL (3.4-5.0); Anion Gap 7 meq/L (5-15); Aspartate Aminotransferase 46 U/L (15-37); Blood Urea Nitrogen 3 mg/dL (7-18); Calcium 8.7 mg/dL (8.5-10.1); Carbon Dioxide 26.2 meq/L (21.0-32.0); Chloride 100 meq/L (98-107); Glomerular Filtration Rate Greater Than 89 mL/min (>89); Glucose,Random 90 mg/dL (74-106); Potassium 3.7 meq/L (3.5-5.1); Sodium 133 meq/L (136-145)
[2018-06-01 12:34] LABS: Alkaline Phosphatase 65 U/L (45-117); Total Protein 8.6 g/dL (6.4-8.2)
--- NOTE | 2018-06-01 13:30 | XR ---
EXAM DATE: 06/01/2018 1:20 PM EST AGE/SEX: 63 years / Male INDICATIONS: Concern for needle fragment. CLINICAL DATA: This is the patient's initial encounter. Patient reports that signs and symptoms have been present for 4 - 6 days and indicates a pain score of 5/10. MEDICAL/SURGICAL HISTORY: None. None. COMPARISON: No prior exams available for comparison. FINDINGS: Bony structures are intact and in normal alignment. Joints are intact without dislocation or signifi cant arthropathy. Osseous density is normal. There may be a small osteochondroma projecting from the distal humerus. Soft tissues are unremarkable. No radiopaque foreign bodies seen. CONCLUSION: No acute fracture left elbow. No foreign body Electronically signed by: Piotr Spencer MD Board Certified Radiologist 06/01/2018 1:29 PM EST
[2018-06-01] MEDS ORDERED: Clindamycin 900 mg/NS Premix 900 MG/50 ML PIGGYBACK IV.SIG ONE (13:41)
[2018-06-01] MEDS ORDERED: Acetaminophen 325 MG Tablet PO PRN (14:28)
[2018-06-01] MEDS ORDERED: Chlorhexidine 4% Topical 120 APPLIC/120 ML Bottle TOPICAL ONE (14:32)
[2018-06-01] MEDS ORDERED: LORazepam 1 MG Tablet PO PRN (14:35)
--- NOTE | 2018-06-01 14:38 | P.HPIM ---
History of Present Illness Primary Care Physician: PROVIDER NON STAFF History of Present Illness: 63-year-old male with a history of hypertension, and a past history of IV drug use with hep C and hep B that was cured after interferon therapy. He presents to the ER today with an abscess of his left antecubital space. This was preceded by another abscess approximately 10 cm distal on his left arm which was treated and cured with a 10-day course of Keflex. Currently there is only a scab that remains. He states that over the past few months he has noticed pimples and sores that have appeared randomly around his body including on his face, behind his knees, on his right arm. 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 He admits to smoking 1 pack of cigarettes per day on a regular basis and drinks a proximally 4 beers per day, but has never had withdrawal from either. He denies any fevers or upper respiratory symptoms. He denies any chest pain or palpitations. He denies any nausea, vomiting, diarrhea. Review of Systems Review of Systems: all other systems reviewed are negative [facility] Medical History Medical History Hepatitis B (Acute) Hypertension (Acute) Surgical History Surgical History History of facial surgery (Acute) History of back surgery (Acute) H/O skin graft (Acute) Family History Family History Other Family history unknown Social History Social History Substance History: No History of Abuse Second Hand Smoke Exposure: Yes Smoking Status: Current every day smoker Tobacco Type: Cigarettes How Often Do You Have a Drink Containing Alcohol: 2 to 3 times a week Recent Travel in [facility] within the Last 8 Weeks: No Recent Out of Country Travel within the Last 8 Weeks: No Immunization History Tetanus Immunization: >5 Years Medications and Allergies Allergies Allergy/AdvReac Type Severity Reaction Status Date / Time No Known Allergies Allergy Verified 06/01/18 11:12 Active Medications: Active Medications Acetaminophen (Tylenol) 650 mg PO Q4H PRN PRN Reason: Temp > 100.4 Chlorhexidine Gluconate (Hibiclens 4% Topical) 1 applicatio TOPICAL ONCE ONE Stop: 06/01/18 14:33 Clonidine HCl (Clonidine (Nicu) 20 Mcg/Ml Liq) 100 mcg PO Q8HR [facility] Heparin Sodium (Porcine) (Heparin Inj) 5,000 units SQ Q12H NICK Vancomycin HCl 1,000 mg/ (Sodium Chloride) 250 mls @ 250 mls/hr IV.SIG Q24H NICK Ibuprofen (Motrin) 600 mg PO Q8H PRN PRN Reason: Acute Pain Lorazepam (Ativan) 1 mg PO Q8H PRN PRN Reason: ANXIETY AND/OR INSOMNIA Mupirocin (Bactroban 2% Oint) 1 applicatio TOPICAL BID [facility] Ondansetron HCl (Zofran Inj) 4 mg IV.PUSH Q6H PRN PRN Reason: NAUSEA OR VOMITING Sennosides (Senokot) 17.2 mg PO Q12H PRN PRN Reason: Moderate Constipation Sodium Chloride (Ns Flush) 2 ml IV.FLUSH BID [facility] Physical Exam Vital signs: Vital Signs 06/01/18 11:01 Temperature 97.5 F L Pulse Rate 105 H Respiratory Rate 18 Blood Pressure 154/79 H Pulse Oximetry 97 Intake & Output 05/31/18 06/01/18 06/01/18 18:59 06:59 18:59 Intake Total 250 / 250 Balance 250 / 250 Weight 83.915 kg Intake: IV 250 / 250 Vancomycin Inj 1,000 MG In NS 250 / 250 Inj 250 ML @ 250 mls/hr IV.SIG ONCE ONE Rx#:[id number] Narrative: GENERAL: AAOx3, no acute distress, adequate nutrition, thin, poor dentition SKIN: Warm and dry, erythema extending from an abscess that is covered in a dressing following culture from drainage. HEAD: Atraumatic. Normocephalic. EYES: Pupils equal, round, reactive to light. No scleral icterus. No injection or drainage. ENT: No nasal bleeding or discharge. Moist mucous membranes. Nonerythematous oropharynx. NECK: Trachea midline. No JVD. Thyroid size within normal limits. CARDIOVASCULAR: Regular rate and rhythm. No murmur, no gallops, no rubs. RESPIRATORY: Clear and equal to auscultation bilaterally. No crackles, no wheezes. No accessory muscle use. GASTROINTESTINAL: Abdomen soft, non-tender, nondistended, normal active bowel sounds. Hepatic and splenic margins not palpable. MUSCULOSKELETAL: Extremities without clubbing or cyanosis. No obvious deformities. No edema. NEUROLOGICAL: Awake and alert. No obvious cranial nerve deficits. Motor grossly within normal limits. No focal deficits. Five out of 5 muscle strength in the arms and legs. Normal speech. PSYCHIATRIC: Appropriate mood and affect; insight and judgment normal. Results Labs CBC & Chem 7: 06/01/18 11:45 06/01/18 11:45 Imaging Impressions Elbow X-Ray 06/01/18 11:31 CONCLUSION: No acute fracture left elbow. No foreign body Venous Doppler Study 06/01/18 11:31 CONCLUSION: 1. The study is negative for upper extremity deep venous thrombosis. Caprini VTE Risk Assessment Caprini VTE Risk Assessment: Moderate/High Risk (score >= 2) Caprini Risk Assessment Model: Point Value = 1 Point Value = 2 Point Value = 3 Point Value = 5 Age 41-60 Minor surgery BMI > 25 kg/m2 Swollen legs Varicose veins or History of unexplained or recurrent spontaneous Oral contraceptives or hormone replacement Sepsis (< 1 month) Serious lung disease, including pneumonia (< 1 month) Abnormal pulmonary function Acute myocardial infarction Congestive heart failure (< 1 month) History of inflammatory bowel disease Medical patient at bed rest Age 61-74 Arthroscopic surgery Major open surgery (> 45 min) Laparoscopic surgery (> 45 min) Malignancy Confined to bed (> 72 hours) Immobilizing plaster cast Central venous access Age >= 75 History of VTE Family history of VTE Factor V Leiden Prothrombin [id number] Lupus anticoagulant Anticardiolipin antibodies Elevated serum homocysteine Heparin-induced thrombocytopenia Other congenital or acquired thrombophilia Stroke (< 1 month) Elective arthroplasty Hip, pelvis, or leg fracture Acute spinal cord injury (< 1 month) Prophylaxis Regimen: Total Risk Factor Score Risk Level Prophylaxis Regimen 0-1 Low Early ambulation 2 Moderate Order ONE of the following: *Sequential Compression Device (SCD) *Heparin 5000 units SQ BID 3-4 Higher Order ONE of the following medications: *Heparin 5000 units SQ TID *Enoxaparin/Lovenox 40 mg SQ daily (WT < 150 kg, CrCl > 30 mL/min) *Enoxaparin/Lovenox 30 mg SQ daily (WT < 150 kg, CrCl > 10-29 mL/min) *Enoxaparin/Lovenox 30 mg SQ BID (WT < 150 kg, CrCl > 30 mL/min) AND/OR *Sequential Compression Device (SCD) 5 or more Highest Order ONE of the following medications: *Heparin 5000 units SQ TID (Preferred with Epidurals) *Enoxaparin/Lovenox 40 mg SQ daily (WT < 150 kg, CrCl > 30 mL/min) *Enoxaparin/Lovenox 30 mg SQ daily (WT < 150 kg, CrCl > 10-29 mL/min) *Enoxaparin/Lovenox 30 mg SQ BID (WT < 150 kg, CrCl > 30 mL/min) AND *Sequential Compression Device (SCD) Assessment and Plan Plan Left antecubital abscess Failure of outpatient therapy, occurred in the context of Keflex raising suspicion for MRSA Cultures collected in the ER, results pending Continue with vancomycin IV daily Ibuprofen as needed for pain Hibiclens treatment of skin, Bactroban for any suspicious pustules in order to treat suspected MRSA infestation Hypertension Continue clonidine every 8 hours home dose Tobacco abuse Patient declines my offer for nicotine patch Encourage smoking cessation Alcohol abuse Patient admits to drinking 4 beers per day Ativan as needed DVT prophylaxis Heparin Discharge planning Follow improvement on IV antibiotics, plan for discharge with p.o. antibiotic to cover MRSA, 1-2 day stay expected
[2018-06-01] MEDS: Heparin - SQ 10,000 UNITS/ML Vial SQ SCH (15:16)
[2018-06-01] MEDS ORDERED: cloNIDine Susp (NICU) 20 MCG/ML 30 ML Bottle PO SCH (22:00)
[2018-06-01] MEDS: Ibuprofen 600 MG Tablet PO PRN (23:24)
[2018-06-02] MEDS: Heparin - SQ 10,000 UNITS/ML Vial SQ SCH ×2 (02:01→15:37)
[2018-06-02 08:15] LABS: Baso # (Auto) 0.1 th/mm3 (0.0-0.2); Baso % (Auto) 0.9 % (0.0-2.0); Eos % (Auto) 0.8 % (0.0-4.0); Hematocrit 43.1 % (39.0-51.0); Hemoglobin 15.1 gm/dL (13.0-17.0); Lymph # (Auto) 2.3 th/mm3 (1.0-4.8); Lymph % (Auto) 36.6 % (9.0-44.0); Mean Corpuscular HGB Conc 35.1 % (32.0-36.0); Mean Corpuscular Hemoglobin 35.5 pg (27.0-34.0); Mean Corpuscular Volume 101.3 fL (80.0-100.0); Mean Platelet Volume 7.5 fL (7.0-11.0); Mono # (Auto) 0.7 th/mm3 (0.0-0.9); Mono % (Auto) 11.8 % (0.0-8.0); Neut # (Auto) 3.1 th/mm3 (1.8-7.7); Neut % (Auto) 49.9 % (16.0-70.0); Platelet Count 167 th/mm3 (150-450); Red Blood Count 4.26 mil/mm3 (4.50-5.90); Red Cell Distribution Width 12.9 % (11.6-17.2); White Blood Count 6.3 th/mm3 (4.0-11.0)
[2018-06-02 08:31] LABS: Anion Gap 7 meq/L (5-15); Blood Urea Nitrogen 6 mg/dL (7-18); Calcium 8.4 mg/dL (8.5-10.1); Carbon Dioxide 25.9 meq/L (21.0-32.0); Chloride 99 meq/L (98-107); Glomerular Filtration Rate Greater Than 89 mL/min (>89); Glucose,Random 88 mg/dL (74-106); Potassium 3.9 meq/L (3.5-5.1); Sodium 132 meq/L (136-145)
[2018-06-02] MEDS: Vancomycin Inj 1,000 MG in Sodium Chlor 0.9% Inj 250 ML IV.SIG SCH (09:21)
[2018-06-02] MEDS: Ibuprofen 600 MG Tablet PO PRN ×2 (11:09→21:21)
--- NOTE | 2018-06-02 12:01 | P.PNIM ---
Subjective Interval history: Patient states he rested well overnight, the redness has decreased in the area surrounding his left antecubital wound. The antibiotics seem to be working. Physical Exam Vital signs: Vital Signs 06/01/18 14:28 06/01/18 16:00 06/01/18 20:00 Temperature 98.4 F 98.1 F Pulse Rate 80 96 H 90 Respiratory Rate 20 17 16 Blood Pressure 139/74 148/84 H 152/89 H Pulse Oximetry 96 94 L 06/02/18 00:00 06/02/18 04:00 06/02/18 07:05 Temperature 98.3 F 98.0 F 97.8 F Pulse Rate 83 79 88 Respiratory Rate 16 16 18 Blood Pressure 138/83 140/85 112/72 Pulse Oximetry 96 96 95 06/02/18 09:30 Temperature Pulse Rate 79 Respiratory Rate 18 Blood Pressure 121/70 Pulse Oximetry Intake & Output 06/01/18 06/02/18 06/02/18 18:59 06:59 18:59 Intake Total 590 / 590 590 / 590 250 / 250 Balance 590 / 590 590 / 590 250 / 250 Weight 83.915 kg Intake: IV 350 / 350 250 / 250 Cleocin 900 mg/NS Premix 900 mg 100 / 100 In 50 ml @ 100 mls/hr IV.SIG ONCE ONE Rx#:[id number] Vancomycin Inj 1,000 MG In NS 250 / 250 250 / 250 Inj 250 ML @ 250 mls/hr IV.SIG Q24H NICK Rx#:[id number] Oral 240 / 240 590 / 590 Other: # Voids 2 3 Date of Last Bowel Movement 05/31/18 06/01/18 Weight On Admission 83.915 kg Narrative: GENERAL: AAOx3, no acute distress, adequate nutrition, thin, poor dentition SKIN: Warm and dry, central 1.5 cm ulceration overlying previous abscess, erythema has reduced 50% in area HEAD: Atraumatic. Normocephalic. EYES: Pupils equal, round, reactive to light. No scleral icterus. No injection or drainage. ENT: No nasal bleeding or discharge. Moist mucous membranes. Nonerythematous oropharynx. NECK: Trachea midline. No JVD. Thyroid size within normal limits. CARDIOVASCULAR: Regular rate and rhythm. No murmur, no gallops, no rubs. RESPIRATORY: Clear and equal to auscultation bilaterally. No crackles, no wheezes. No accessory muscle use. GASTROINTESTINAL: Abdomen soft, non-tender, nondistended, normal active bowel sounds. Hepatic and splenic margins not palpable. MUSCULOSKELETAL: Extremities without clubbing or cyanosis. No obvious deformities. No edema. NEUROLOGICAL: Awake and alert. No obvious cranial nerve deficits. Motor grossly within normal limits. No focal deficits. Five out of 5 muscle strength in the arms and legs. Normal speech. PSYCHIATRIC: Appropriate mood and affect; insight and judgment normal. Results Labs CBC & Chem 7: 06/02/18 07:24 06/02/18 07:24 Labs: Microbiology 06/01/18 11:45 Blood - Peripheral Aerobic Blood Culture - Preliminary No growth in 1 day 06/01/18 11:45 Blood - Peripheral Anaerobic Blood Culture - Preliminary No growth in 1 day 06/01/18 11:45 Blood - Peripheral Aerobic Blood Culture - Preliminary No growth in 1 day 06/01/18 11:45 Blood - Peripheral Anaerobic Blood Culture - Preliminary No growth in 1 day 06/01/18 12:10 Abscess - Arm Gram Stain - Final Imaging Imaging: Impressions Elbow X-Ray 06/01/18 11:31 CONCLUSION: No acute fracture left elbow. No foreign body Venous Doppler Study 06/01/18 11:31 CONCLUSION: 1. The study is negative for upper extremity deep venous thrombosis. Assessment and Plan Plan Left antecubital abscess Failure of outpatient therapy, occurred in the context of Keflex raising suspicion for MRSA Cultures collected in the ER, results pending, gram-positive cocci in clusters and chains (staph, strep) Continue with vancomycin IV daily for 1 more day Ibuprofen as needed for pain Plan to discharge tomorrow on p.o. options such as clindamycin Hypertension Continue clonidine every 8 hours home dose Tobacco abuse Patient declines my offer for nicotine patch Encourage smoking cessation Alcohol abuse Patient admits to drinking 4 beers per day Ativan as needed DVT prophylaxis Heparin Discharge planning We will likely discharge tomorrow morning with p.o. antibiotics such as clindamycin Progress Note: Quality VTE Deep Vein Thrombosis/Pulmonary Embolism Present on Admission: No
[2018-06-03] MEDS: Heparin - SQ 10,000 UNITS/ML Vial SQ SCH (02:08)
[2018-06-03 07:31] VITALS: O2SAT 97
[2018-06-03] MEDS: Vancomycin Inj 1,000 MG in Sodium Chlor 0.9% Inj 250 ML IV.SIG SCH (09:32)
--- NOTE | 2018-06-03 10:51 | P.DS ---
DS: Providers Date of admission: 06/01/18 14:23 Primary care physician: PROVIDER NON STAFF Brief History from admission: 63-year-old male with a history of hypertension, and a past history of IV drug use with hep C and hep B that was cured after interferon therapy. He presents to the ER today with an abscess of his left antecubital space. This was preceded by another abscess approximately 10 cm distal on his left arm which was treated and cured with a 10-day course of Keflex. Currently there is only a scab that remains. He states that over the past few months he has noticed pimples and sores that have appeared randomly around his body including on his face, behind his knees, on his right arm. 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 He admits to smoking 1 pack of cigarettes per day on a regular basis and drinks a proximally 4 beers per day, but has never had withdrawal from either. He denies any fevers or upper respiratory symptoms. He denies any chest pain or palpitations. He denies any nausea, vomiting, diarrhea. DS: Summary 63-year-old male who presented 1.5 days ago with cellulitis in the antecubital space and a central ulceration. He was placed on vancomycin and clinically improved approximately 50% after the first day. Compared to admission on today is 80% improved. He is stable for discharge home, I am switching him to clindamycin p.o. for 5 more days. I recommended he go home and change his dressings once a day with application of Bactroban which is at bedside. We will provide him on dressings for 3-4 more days. He is recommended to follow- up with his primary care provider in 1-2 weeks. Time Spent with Patient Total time spent providing and/or coordinating discharge services: Quality: VTE Deep Vein Thrombosis/Pulmonary Embolism Present on Admission: No Results Labs on day of discharge: Preliminary micro results at discharge 06/01/18 12:10 Wound Culture - Preliminary Abscess - Arm 06/01/18 11:45 Aerobic Blood Culture - Preliminary Blood - Peripheral No growth in 1 day Anaerobic Blood Culture - Preliminary No growth in 1 day 06/01/18 11:45 Aerobic Blood Culture - Preliminary Blood - Peripheral No growth in 1 day Anaerobic Blood Culture - Preliminary No growth in 1 day Impressions ITS Impressions Elbow X-Ray 06/01/18 11:31 CONCLUSION: No acute fracture left elbow. No foreign body Venous Doppler Study 06/01/18 11:31 CONCLUSION: 1. The study is negative for upper extremity deep venous thrombosis. Discharge Plan Discharge Disposition Patient Disposition: 01 Discharge Home Discharge Condition Condition: Stable Discharge Order Discharge Orders: Discharge Order (Routine); Ordered 06/03/18 Ordered By: Alverto Del Toro Discharge Details Anticipated Discharge Date: 06/03/18 Discharge Comment: D/C home following vancomycin dose. Send with island dressing and bactroban. Physicians Team Primary Care Provider: NON STAFF,PROVIDER Attending Provider: Alverto Del Troo Rxs /Orders / Referrals /Forms Prescriptions: New clindamycin HCl 300 mg capsule 300 mg PO Q8H 5 Days Qty: 15 RF: 0 Continue clonidine HCl [Catapres] 0.1 mg Tablet 0.1 mg PO Q8HR RF: 0 Referrals: NON STAFF,PROVIDER [Primary Care Provider] - See Instructions Discharge Interventions Interventions: Discharge Planning - Case Management Last Done: 06/02/18 11:26 Status ED Status: Left Department
[2018-06-03 11:38] VITALS: BP 131/75; PULSE 68; RESP 18; TEMP 98.8
== END 2018-06-03 13:34 | disposition home or self-care (01) ==
LOC: NEPD 10:51 → NEDA 10:51 → NEPFCDU 15:44
PROVIDERS: ADMIT Family Medicine; ATTEND Family Medicine
DX: F17.210 Nicotine dependence, cigarettes, uncomplicated; F10.10 Alcohol abuse, uncomplicated; I10 Essential (primary) hypertension; B19.10 Unspecified viral hepatitis B without hepatic coma; L02.414 Cutaneous abscess of left upper limb; G89.29 Other chronic pain
CPT/HCPCS: 73070; 80048; 80053; 85025; 87040; 87070; 87205; 90765; 90766; 93971; 96365; 96366; 96375; 96376; 99285; G0378; J1644; J3370; J7050